=== PATIENT | male | born 1975 | race Caucasian/White ===

== ENCOUNTER 2020-04-12 22:46 | Inpatient (IN) | payer OTHER ==
[2020-04-12 23:53] LABS: #Eosinphils 0.1 10x3/uL (0.0-0.5); #Monocytes 0.7 10x3/uL (0.0-1.1); #Neutrophils 5.2 10x3/uL (1.5-8.4); %Basophils 0.5 % (0.0-2.0); %Eosinophils 0.9 % (0.0-6.0); %Lymphocytes 24.7 % (18.0-47.0); %Monocytes 8.1 % (0.0-10.0); %Neutrophils 65.4 % (40.0-75.0); Hemoglobin 18.3 g/dL (13.5-17.5); Mean Corpuscular HGB CONC 31.4 g/dL (32.0-36.0); Mean Corpuscular Hemoglobin 29.7 pg (27.0-33.0); Mean Corpuscular Volume 94.6 fl (81.2-95.1); Mean Platelet Volume 11.5 fl (7.4-10.4); Platelet Count 154 10x3/uL (150-450); RBC Distribution Width 15.3 % (11.5-14.5); Red Blood Cell (RBC) Count 6.16 10x6/uL (4.32-5.72)
[2020-04-12 23:57] LABS: ALT (SGPT) 19 U/L (8-55); AST (SGOT) 24 U/L (5-34); Albumin 3.9 g/dL (3.5-5.0); Alkaline Phosphatase 104 U/L (40-110); Anion Gap 17 mmol/L (10-20); BUN (Urea Nitrogen) 23 mg/dL (8.9-20.6); Calc. Creatinine Clearance 0 mL/min (70-130); Calcium 9.2 mg/dL (7.8-10.44); Carbon Dioxide 27 mmol/L (22-29); Chloride 100 mmol/L (98-107); Globulin 2.9 g/dL (2.4-3.5); Glucose 88 mg/dL (70-105); Lipase 40 U/L (8-78); Potassium 4.2 mmol/L (3.5-5.1); Protein, Total 6.8 g/dL (6.0-8.3); Sodium 140 mmol/L (136-145)
[2020-04-13 00:29] LABS: CKMB 3.5 ng/mL (0-6.6)
[2020-04-13] MEDS ORDERED: Diltiazem 125 MG/25 ML ONE (01:23)
[2020-04-13] MEDS ORDERED: Diltiazem 125 MG in Sodium Chloride 0.9% 100 ML IVPB SCH (02:00)
[2020-04-13] MEDS ORDERED: Furosemide 40 MG/4 ML VIAL SLOW IVP SCH (02:00)
[2020-04-13 02:45] LABS: SARS-CoV-2 NAA Rapid Test Not Detected (NotDetected)
[2020-04-13] MEDS: Apixaban 5 MG TAB PO SCH ×2 (04:00→13:56)
[2020-04-13 05:43] LABS: #Basophils 0.1 10x3/uL (0.0-0.2); #Eosinphils 0.1 10x3/uL (0.0-0.5); #Monocytes 0.8 10x3/uL (0.0-1.1); #Neutrophils 4.7 10x3/uL (1.5-8.4); %Basophils 0.6 % (0.0-2.0); %Eosinophils 1.2 % (0.0-6.0); %Lymphocytes 27.2 % (18.0-47.0); %Monocytes 9.7 % (0.0-10.0); %Neutrophils 60.9 % (40.0-75.0); Hemoglobin 17.5 g/dL (13.5-17.5); Mean Corpuscular HGB CONC 31.6 g/dL (32.0-36.0); Mean Corpuscular Volume 94.9 fl (81.2-95.1); Mean Platelet Volume 11.8 fl (7.4-10.4); Platelet Count 152 10x3/uL (150-450); RBC Distribution Width 14.5 % (11.5-14.5); Red Blood Cell (RBC) Count 5.83 10x6/uL (4.32-5.72); White Blood Cell (WBC) Count 7.7 10x3/uL (3.5-10.5)
[2020-04-13 05:51] LABS: Troponin I 0.238 ng/mL (< 0.028)
[2020-04-13 05:53] LABS: Anion Gap 18 mmol/L (10-20); BUN (Urea Nitrogen) 23 mg/dL (8.9-20.6); Calc. Creatinine Clearance 0 mL/min (70-130); Calcium 9.3 mg/dL (7.8-10.44); Carbon Dioxide 28 mmol/L (22-29); Chloride 98 mmol/L (98-107); Glucose 79 mg/dL (70-105); Magnesium 1.7 mg/dL (1.6-2.6); Sodium 140 mmol/L (136-145)
[2020-04-13] MEDS: Aspirin 81 mg Enteric Coated Tablet PO SCH (08:25)
[2020-04-13] MEDS: Allopurinol 100 MG TAB PO SCH (08:25)
[2020-04-13] MEDS: Digoxin 0.125 MG TAB PO SCH (08:25)
[2020-04-13] MEDS: Lisinopril 10 MG TAB PO SCH (08:27)
[2020-04-13] MEDS ORDERED: Magnesium Sulfate 2 GM in Sodium Chloride 0.9% 100 ML IVPB SCH (08:30)
[2020-04-13] MEDS ORDERED: Magnesium 2 GM/50 ML 2 GM in Premix Bag 1 BAG IVPB SCH (09:00)
[2020-04-13 13:49] VITALS: BMI 21.0
[2020-04-14] MEDS: Apixaban 5 MG TAB PO SCH ×2 (02:01→15:27)
[2020-04-14] MEDS: Digoxin 0.125 MG TAB PO SCH (05:20)
[2020-04-14] MEDS: Aspirin 81 mg Enteric Coated Tablet PO SCH (05:20)
[2020-04-14] MEDS: Allopurinol 100 MG TAB PO SCH (05:21)
[2020-04-14 05:44] LABS: #Basophils 0.1 10x3/uL (0.0-0.2); #Eosinphils 0.1 10x3/uL (0.0-0.5); #Monocytes 0.8 10x3/uL (0.0-1.1); #Neutrophils 4.6 10x3/uL (1.5-8.4); %Basophils 0.6 % (0.0-2.0); %Eosinophils 1.7 % (0.0-6.0); %Lymphocytes 27.9 % (18.0-47.0); %Monocytes 10.2 % (0.0-10.0); %Neutrophils 59.3 % (40.0-75.0); Hemoglobin 17.5 g/dL (13.5-17.5); Mean Corpuscular HGB CONC 31.3 g/dL (32.0-36.0); Mean Corpuscular Hemoglobin 29.7 pg (27.0-33.0); Mean Corpuscular Volume 94.9 fl (81.2-95.1); Mean Platelet Volume 11.2 fl (7.4-10.4); Platelet Count 147 10x3/uL (150-450); RBC Distribution Width 14.4 % (11.5-14.5); White Blood Cell (WBC) Count 7.8 10x3/uL (3.5-10.5)
[2020-04-14 06:00] LABS: Anion Gap 16 mmol/L (10-20); BUN (Urea Nitrogen) 25 mg/dL (8.9-20.6); Calc. Creatinine Clearance 60 mL/min (70-130); Calcium 8.7 mg/dL (7.8-10.44); Carbon Dioxide 27 mmol/L (22-29); Chloride 100 mmol/L (98-107); Glucose 76 mg/dL (70-105); Sodium 139 mmol/L (136-145)
[2020-04-14] MEDS: Furosemide 40 MG TAB PO SCH (08:25)
[2020-04-14] MEDS: Lisinopril 10 MG TAB PO SCH (08:26)
[2020-04-14] MEDS ORDERED: Midazolam HCl 5 mg/5 ml Vial ONE ×2 (09:51→09:52)
[2020-04-14] MEDS ORDERED: PROPOFOL 0 ML ONE (11:15)
[2020-04-14] MEDS ORDERED: Ivabradine 5 MG TAB PO SCH ×2 (12:15→21:00)
[2020-04-14] MEDS ORDERED: Digoxin 0.5 MG/2 ML AMP ONE ×2 (12:28→13:03)
[2020-04-14] MEDS ORDERED: Digoxin 0.5 MG/2 ML AMP SLOW IVP SCH (12:30)
[2020-04-14] MEDS ORDERED: Amiodarone 200 MG TAB PO SCH (12:30)
[2020-04-14] MEDS ORDERED: Diltiazem 125 MG in Sodium Chloride 0.9% 100 ML IVPB SCH (13:30)
[2020-04-14] MEDS: Amiodarone 200 MG TAB PO SCH (21:13)
[2020-04-14] MEDS ORDERED: Metoprolol Tartrate 5 MG/5 ML VIAL IVP SCH ×2 (22:15→23:15)
[2020-04-14] MEDS ORDERED: Digoxin 0.125 MG TAB PO SCH (23:15)
[2020-04-15] MEDS: Apixaban 5 MG TAB PO SCH ×2 (03:02→13:57)
[2020-04-15 06:34] LABS: #Eosinphils 0.2 10x3/uL (0.0-0.5); #Monocytes 0.9 10x3/uL (0.0-1.1); #Neutrophils 6.6 10x3/uL (1.5-8.4); %Basophils 0.4 % (0.0-2.0); %Lymphocytes 17.2 % (18.0-47.0); %Monocytes 9.4 % (0.0-10.0); %Neutrophils 70.6 % (40.0-75.0); Hemoglobin 18.3 g/dL (13.5-17.5); Mean Corpuscular HGB CONC 31.2 g/dL (32.0-36.0); Mean Corpuscular Volume 96.4 fl (81.2-95.1); Mean Platelet Volume 11.7 fl (7.4-10.4); Platelet Count 152 10x3/uL (150-450); RBC Distribution Width 15.1 % (11.5-14.5); Red Blood Cell (RBC) Count 6.09 10x6/uL (4.32-5.72); White Blood Cell (WBC) Count 9.4 10x3/uL (3.5-10.5)
[2020-04-15 06:40] LABS: Anion Gap 11 mmol/L (10-20); BUN (Urea Nitrogen) 23 mg/dL (8.9-20.6); Calc. Creatinine Clearance 63 mL/min (70-130); Calcium 8.3 mg/dL (7.8-10.44); Carbon Dioxide 30 mmol/L (22-29); Chloride 100 mmol/L (98-107); Glucose 118 mg/dL (70-105); Magnesium 1.9 mg/dL (1.6-2.6); Potassium 4.1 mmol/L (3.5-5.1); Sodium 137 mmol/L (136-145)
[2020-04-15] MEDS: Carvedilol 3.125 MG TAB PO SCH ×2 (09:37→17:18)
[2020-04-15] MEDS: Amiodarone 200 MG TAB PO SCH ×2 (09:37→20:17)
[2020-04-15] MEDS: Furosemide 40 MG TAB PO SCH (09:37)
[2020-04-15] MEDS: Digoxin 0.125 MG TAB PO SCH (09:38)
[2020-04-15] MEDS: Allopurinol 100 MG TAB PO SCH (09:41)
[2020-04-15 13:27] LABS: Actual Bicarbonate (HCO3a) 28.7 mEq/L (22-28); CO2 Tension 50.6 mmHg (35.0-45.0); Calcium, Ionized (arterial) 1.16 mmol/L (1.12-1.30); Carboxyhemoglobin (COHb) 0.7 gm% (0.0-3.0); Hemoglobin (Hb) 20.1 g/dL (14.0-18.0); O2 Tension (PaO2), arterial 41.4 mmHg (80.0-100.0); Potassium - ABG Lab 4.5 mmol/L (3.70-5.30); Puncture Site RRA; pH, Arterial 7.37 (7.35-7.45)
[2020-04-16] MEDS: Apixaban 5 MG TAB PO SCH ×2 (02:14→14:38)
[2020-04-16 05:50] LABS: #Basophils 0.1 10x3/uL (0.0-0.2); #Eosinphils 0.2 10x3/uL (0.0-0.5); #Monocytes 0.7 10x3/uL (0.0-1.1); #Neutrophils 4.6 10x3/uL (1.5-8.4); %Basophils 0.7 % (0.0-2.0); %Eosinophils 2.6 % (0.0-6.0); %Monocytes 9.5 % (0.0-10.0); %Neutrophils 62.8 % (40.0-75.0); Hemoglobin 18.5 g/dL (13.5-17.5); Mean Corpuscular HGB CONC 30.6 g/dL (32.0-36.0); Mean Corpuscular Hemoglobin 29.6 pg (27.0-33.0); Mean Corpuscular Volume 96.5 fl (81.2-95.1); Mean Platelet Volume 11.4 fl (7.4-10.4); Platelet Count 130 10x3/uL (150-450); RBC Distribution Width 14.9 % (11.5-14.5); Red Blood Cell (RBC) Count 6.26 10x6/uL (4.32-5.72); White Blood Cell (WBC) Count 7.3 10x3/uL (3.5-10.5)
[2020-04-16 06:06] LABS: ALT (SGPT) 13 U/L (8-55); AST (SGOT) 18 U/L (5-34); Albumin 2.9 g/dL (3.5-5.0); Alkaline Phosphatase 85 U/L (40-110); Anion Gap 16 mmol/L (10-20); BUN (Urea Nitrogen) 20 mg/dL (8.9-20.6); Bilirubin, Total 2.6 mg/dL (0.2-1.2); Calc. Creatinine Clearance 66 mL/min (70-130); Calcium 8.4 mg/dL (7.8-10.44); Carbon Dioxide 30 mmol/L (22-29); Chloride 101 mmol/L (98-107); Globulin 2.5 g/dL (2.4-3.5); Glucose 87 mg/dL (70-105); Magnesium 1.8 mg/dL (1.6-2.6); Potassium 4.6 mmol/L (3.5-5.1); Protein, Total 5.4 g/dL (6.0-8.3); Sodium 142 mmol/L (136-145)
[2020-04-16 08:13] VITALS: TEMP 98.6
[2020-04-16] MEDS: Carvedilol 3.125 MG TAB PO SCH (08:57)
[2020-04-16] MEDS: Allopurinol 100 MG TAB PO SCH (08:57)
[2020-04-16] MEDS: Amiodarone 200 MG TAB PO SCH (08:57)
[2020-04-16] MEDS: Furosemide 40 MG TAB PO SCH (08:57)
[2020-04-16 11:53] VITALS: BP 106/58
== END 2020-04-16 15:23 | disposition home or self-care (01) | DRG 308 ==
LOC: CSHERS 22:46 → CSHTELE 04-13 01:48 → UNDOADMOB 04-13 03:45 → OBSVTOIN 04-13 16:57
PROVIDERS: ADMIT Family Medicine; ATTEND Internal Medicine
PROC: B24BZZ4 Ultrasonography of Heart with Aorta, Transesophageal (ICD-10-PCS; principal; 2020-04-14)
PROC: 5A2204Z Restoration of Cardiac Rhythm, Single (ICD-10-PCS; 2020-04-14)
DX: I48.91 Unspecified atrial fibrillation (principal); Q25.5 Atresia of pulmonary artery; Q22.4 Congenital tricuspid stenosis; I50.21 Acute systolic (congestive) heart failure; N17.9 Acute kidney failure, unspecified; I13.0 Hypertensive heart and chronic kidney disease with heart failure and stage 1 through stage 4 chronic kidney disease, or unspecified chronic kidney disease; Z20.822 Contact with and (suspected) exposure to COVID-19; I48.92 Unspecified atrial flutter; R10.9 Unspecified abdominal pain; I42.0 Dilated cardiomyopathy; D75.1 Secondary polycythemia; N18.32 Chronic kidney disease, stage 3b; Z88.0 Allergy status to penicillin; Z79.82 Long term (current) use of aspirin; Z86.16 Personal history of COVID-19; Z79.51 Long term (current) use of inhaled steroids; Z79.899 Other long term (current) drug therapy
CPT/HCPCS: 36415; 36600; 71045; 80048; 80053; 82553; 82805; 83690; 83735; 83880; 84443; 84484; 85025; 92960; 93005; 93010; 93306; 93312; 93975; 94760; 96365; 96366; 96367; 96375; 96376; G0378; J1160; J1940; J2250; J2704; J3475; J3490; U0002

== ENCOUNTER 2021-01-01 09:28 | Inpatient (IN) | payer OTHER ==
[2021-01-01] MEDS ORDERED: Ondansetron PF 4 MG/2 ML Vial ONE (10:31)
[2021-01-01 10:39] LABS: Hemoglobin 22.1 g/dL (13.5-17.5); Mean Corpuscular HGB CONC 32.5 g/dL (32.0-36.0); Mean Corpuscular Hemoglobin 30.1 pg (27.0-33.0); Mean Corpuscular Volume 92.5 fl (81.2-95.1); Mean Platelet Volume 10.5 fl (7.4-10.4); Platelet Count 191 10x3/uL (150-450); RBC Distribution Width 17.6 % (11.5-14.5); Red Blood Cell (RBC) Count 7.34 10x6/uL (4.32-5.72); White Blood Cell (WBC) Count 10.4 10x3/uL (3.5-10.5)
[2021-01-01 10:44] LABS: MDiff Complete? YES
[2021-01-01 11:31] LABS: Band 1 % (5-11); Lymphocytes 12 % (21-51); Monocytes 7 % (0-10); Neutrophil 80 % (42-75)
[2021-01-01 11:32] LABS: Platelet Morphology Comment Appears Adequate
[2021-01-01 11:33] LABS: RBC Morphology Normal
[2021-01-01 11:37] LABS: #Basophils 0.1 10x3/uL (0.0-0.2); #Monocytes 1.1 10x3/uL (0.0-1.1); #Neutrophils 7.6 10x3/uL (1.5-8.4); %Basophils 0.7 % (0.0-2.0); %Eosinophils 0.4 % (0.0-6.0); %Lymphocytes 13.9 % (18.0-47.0); %Monocytes 10.8 % (0.0-10.0); %Neutrophils 73.5 % (40.0-75.0); Hemoglobin 21.6 g/dL (13.5-17.5); Mean Corpuscular HGB CONC 32.3 g/dL (32.0-36.0); Mean Corpuscular Hemoglobin 30.1 pg (27.0-33.0); Mean Corpuscular Volume 93.2 fl (81.2-95.1); Mean Platelet Volume 10.6 fl (7.4-10.4); Platelet Count 182 10x3/uL (150-450); RBC Distribution Width 17.3 % (11.5-14.5); Red Blood Cell (RBC) Count 7.17 10x6/uL (4.32-5.72); White Blood Cell (WBC) Count 10.3 10x3/uL (3.5-10.5)
[2021-01-01 11:55] LABS: ALT (SGPT) 395 U/L (8-55); AST (SGOT) 350 U/L (5-34); Albumin 3.6 g/dL (3.5-5.0); Alkaline Phosphatase 132 U/L (40-110); Anion Gap 13 mmol/L (10-20); BUN (Urea Nitrogen) 36 mg/dL (8.9-20.6); Calc. Creatinine Clearance 0 mL/min (70-130); Calcium 8.7 mg/dL (7.8-10.44); Carbon Dioxide 27 mmol/L (22-29); Chloride 99 mmol/L (98-107); Globulin 3.9 g/dL (2.4-3.5); Glucose 80 mg/dL (70-105); Lipase 136 U/L (8-78); Protein, Total 7.5 g/dL (6.0-8.3); Sodium 132 mmol/L (136-145)
[2021-01-01 12:06] LABS: Potassium 6.7 mmol/L (3.5-5.1)
[2021-01-01 12:50] LABS: Bilirubin 1+ (Negative); Blood, Urine Negative (Negative); Clarity Clear (Clear); Glucose, Urine (Dipstick) Normal (Negative); Ketone, Urine 15 mg/dL (Negative); Leukocyte Negative (Negative); Nitrite Negative (Negative); Protein, Urine (Dipstick) 30 mg/dl (Neg-Trace); Specific Gravity, Urine 1.025 (1.002-1.036)
[2021-01-01 12:58] LABS: RBC/HPF 0-3 HPF (0-3); WBC/HPF 0-3 HPF (0-3)
[2021-01-01 12:59] LABS: Bacteria/HPF None Seen HPF (None Seen); Squamous Epithelial 0-3 HPF (0-3)
[2021-01-01 13:19] LABS: Anion Gap 15 mmol/L (10-20); BUN (Urea Nitrogen) 34 mg/dL (8.9-20.6); Calc. Creatinine Clearance 0 mL/min (70-130); Calcium 8.2 mg/dL (7.8-10.44); Carbon Dioxide 24 mmol/L (22-29); Chloride 101 mmol/L (98-107); Glucose 68 mg/dL (70-105); Potassium 6.2 mmol/L (3.5-5.1); Sodium 134 mmol/L (136-145)
[2021-01-01] MEDS ORDERED: Calcium Gluc 4.6 MEQ/10 ML (100 MG/ML) ONE (13:41)
[2021-01-01] MEDS ORDERED: Dextrose 50% Abboject 50 ML SYRINGE ONE (13:43)
[2021-01-01] MEDS ORDERED: Insulin Regular 300 UNITS/3 ML VIAL ONE (13:44)
[2021-01-01 15:39] LABS: INR-International Normal Ratio 1.5; Prothrombin Time 16.4 sec (9.5-12.1)
[2021-01-01 16:26] LABS: Digoxin 4.02 ng/mL (0.8-2.0)
[2021-01-01 16:42] LABS: CKMB 2.7 ng/mL (0-6.6)
[2021-01-01 17:06] LABS: SARS-CoV-2 NAA Rapid Test Not Detected (NotDetected)
[2021-01-01 17:35] LABS: ALT (SGPT) 455 U/L (8-55); AST (SGOT) 415 U/L (5-34); Acetaminophen Less than 6.0 mcg/mL (10.0-30.0); Albumin 3.3 g/dL (3.5-5.0); Alkaline Phosphatase 126 U/L (40-110); Anion Gap 13 mmol/L (10-20); BUN (Urea Nitrogen) 30 mg/dL (8.9-20.6); Bilirubin, Total 1.9 mg/dL (0.2-1.2); Calc. Creatinine Clearance 0 mL/min (70-130); Calcium 8.5 mg/dL (7.8-10.44); Carbon Dioxide 24 mmol/L (22-29); Chloride 103 mmol/L (98-107); Globulin 3.3 g/dL (2.4-3.5); Glucose 71 mg/dL (70-105); Iron 166 ug/dL (65-175); Iron Binding Capacity, Total 268 mcg/dL (261-462); Potassium 5.1 mmol/L (3.5-5.1); Protein, Total 6.6 g/dL (6.0-8.3); Sodium 135 mmol/L (136-145)
[2021-01-01 17:40] LABS: Troponin I 0.058 ng/mL (< 0.028)
[2021-01-01] MEDS: Carvedilol 3.125 MG TAB PO SCH (21:15)
[2021-01-01] MEDS: Aspirin 81 mg Enteric Coated Tablet PO SCH (21:15)
[2021-01-01] MEDS: Apixaban 5 MG TAB PO SCH (21:15)
[2021-01-01 23:44] LABS: HBCM Index 0.06 S/CO (0-0.79); HBSAB Concentration Less than 8.00 mIU/mL; HBSAg Index 0.23 S/CO (0-0.99); Hep A IgM AB Non-Reactive (NonReactive); Hep A IgM S/CO 0.11 S/CO (0-0.79); Hep B Surf AB Non-Reactive (NonReactive); Hep B Surf Ag Non-Reactive S/CO (NonReactive); Hep C IgG Ab Non-Reactive (NonReactive); Hep C Index 0.06 S/CO (0-0.79); Hepatitis B Core IgM Abs Non-Reactive (NonReactive)
[2021-01-02 04:27] LABS: ALT (SGPT) 554 U/L (8-55); AST (SGOT) 516 U/L (5-34); Albumin 3.1 g/dL (3.5-5.0); Alkaline Phosphatase 119 U/L (40-110); Anion Gap 15 mmol/L (10-20); BUN (Urea Nitrogen) 25 mg/dL (8.9-20.6); Bilirubin, Total 2.1 mg/dL (0.2-1.2); CK (CPK) 34 U/L (30-200); Calc. Creatinine Clearance 49 mL/min (70-130); Calcium 8.5 mg/dL (7.8-10.44); Carbon Dioxide 23 mmol/L (22-29); Chloride 101 mmol/L (98-107); Potassium 5.6 mmol/L (3.5-5.1); Protein, Total 6.1 g/dL (6.0-8.3); Sodium 133 mmol/L (136-145)
[2021-01-02 04:28] LABS: Glucose 56 mg/dL (70-105)
[2021-01-02 05:11] LABS: #Basophils 0.1 10x3/uL (0.0-0.2); #Eosinphils 0.1 10x3/uL (0.0-0.5); #Monocytes 1.2 10x3/uL (0.0-1.1); #Neutrophils 7.2 10x3/uL (1.5-8.4); %Basophils 0.5 % (0.0-2.0); %Eosinophils 0.7 % (0.0-6.0); %Lymphocytes 16.4 % (18.0-47.0); %Monocytes 11.4 % (0.0-10.0); %Neutrophils 70.4 % (40.0-75.0); Hemoglobin 19.9 g/dL (13.5-17.5); Mean Corpuscular HGB CONC 31.5 g/dL (32.0-36.0); Mean Corpuscular Hemoglobin 29.4 pg (27.0-33.0); Mean Corpuscular Volume 93.5 fl (81.2-95.1); Mean Platelet Volume 10.8 fl (7.4-10.4); Platelet Count 162 10x3/uL (150-450); RBC Distribution Width 15.5 % (11.5-14.5); Red Blood Cell (RBC) Count 6.76 10x6/uL (4.32-5.72); White Blood Cell (WBC) Count 10.3 10x3/uL (3.5-10.5)
[2021-01-02] MEDS ORDERED: Dextrose 50% Abboject 50 ML SYRINGE SLOW IVP SCH ×2 (06:30)
[2021-01-02] MEDS: Apixaban 5 MG TAB PO SCH ×2 (06:31→20:34)
[2021-01-02] MEDS: Carvedilol 3.125 MG TAB PO SCH ×2 (08:57→20:34)
[2021-01-02] MEDS ORDERED: Ondansetron PF 4 MG/2 ML Vial IVP PRN (12:11)
[2021-01-02] MEDS: traMADol HCl 50 MG TAB PO PRN ×2 (14:23→20:41)
[2021-01-02] MEDS: Sodium Chloride 0.9% 1,000 ML IV SCH (14:24)
[2021-01-02] MEDS: Aspirin 81 mg Enteric Coated Tablet PO SCH (20:34)
[2021-01-03] MEDS: Carvedilol 3.125 MG TAB PO SCH ×2 (09:06→21:22)
[2021-01-03] MEDS: Apixaban 5 MG TAB PO SCH ×2 (09:06→20:39)
[2021-01-03 10:04] LABS: #Basophils 0.1 10x3/uL (0.0-0.2); #Eosinphils 0.1 10x3/uL (0.0-0.5); #Monocytes 1.1 10x3/uL (0.0-1.1); #Neutrophils 5.6 10x3/uL (1.5-8.4); %Eosinophils 1.5 % (0.0-6.0); %Lymphocytes 20.4 % (18.0-47.0); %Monocytes 12.3 % (0.0-10.0); %Neutrophils 64.2 % (40.0-75.0); Hemoglobin 20.7 g/dL (13.5-17.5); Mean Corpuscular HGB CONC 32.2 g/dL (32.0-36.0); Mean Corpuscular Volume 93.1 fl (81.2-95.1); Mean Platelet Volume 11.1 fl (7.4-10.4); Platelet Count 160 10x3/uL (150-450); RBC Distribution Width 17.2 % (11.5-14.5); Red Blood Cell (RBC) Count 6.91 10x6/uL (4.32-5.72); White Blood Cell (WBC) Count 8.8 10x3/uL (3.5-10.5)
[2021-01-03 10:08] LABS: Anion Gap 12 mmol/L (10-20); BUN (Urea Nitrogen) 16 mg/dL (8.9-20.6); Calc. Creatinine Clearance 60 mL/min (70-130); Calcium 8.7 mg/dL (7.8-10.44); Carbon Dioxide 26 mmol/L (22-29); Chloride 100 mmol/L (98-107); Glucose 81 mg/dL (70-105); Potassium 4.7 mmol/L (3.5-5.1); Sodium 133 mmol/L (136-145)
[2021-01-03 10:12] LABS: ALT (SGPT) 480 U/L (8-55); AST (SGOT) 319 U/L (5-34); Albumin 3.2 g/dL (3.5-5.0); Alkaline Phosphatase 120 U/L (40-110); Bilirubin, Direct 1.1 mg/dL (0.1-0.3); Bilirubin, Total 2.2 mg/dL (0.2-1.2); Protein, Total 6.4 g/dL (6.0-8.3)
[2021-01-03] MEDS: Sodium Chloride 0.9% 1,000 ML IV SCH (11:32)
[2021-01-03] MEDS: traMADol HCl 50 MG TAB PO PRN ×2 (11:56→20:40)
[2021-01-03] MEDS: Aspirin 81 mg Enteric Coated Tablet PO SCH (20:39)
[2021-01-04 04:48] LABS: Anion Gap 11 mmol/L (10-20); BUN (Urea Nitrogen) 11 mg/dL (8.9-20.6); Calc. Creatinine Clearance 77 mL/min (70-130); Calcium 8.3 mg/dL (7.8-10.44); Carbon Dioxide 26 mmol/L (22-29); Chloride 101 mmol/L (98-107); Glucose 82 mg/dL (70-105); Potassium 4.2 mmol/L (3.5-5.1); Sodium 134 mmol/L (136-145)
[2021-01-04 04:57] VITALS: BMI 18.8
[2021-01-04 05:24] LABS: ALT (SGPT) 353 U/L (8-55); AST (SGOT) 209 U/L (5-34); Albumin 2.9 g/dL (3.5-5.0); Alkaline Phosphatase 105 U/L (40-110); Bilirubin, Direct 1.2 mg/dL (0.1-0.3); Bilirubin, Total 2.4 mg/dL (0.2-1.2); Protein, Total 5.6 g/dL (6.0-8.3)
[2021-01-04 05:29] LABS: #Basophils 0.1 10x3/uL (0.0-0.2); #Eosinphils 0.2 10x3/uL (0.0-0.5); #Monocytes 0.9 10x3/uL (0.0-1.1); #Neutrophils 4.2 10x3/uL (1.5-8.4); %Basophils 0.7 % (0.0-2.0); %Eosinophils 2.5 % (0.0-6.0); %Lymphocytes 25.7 % (18.0-47.0); %Monocytes 12.7 % (0.0-10.0); %Neutrophils 57.7 % (40.0-75.0); Hemoglobin 19.3 g/dL (13.5-17.5); Mean Corpuscular HGB CONC 32.4 g/dL (32.0-36.0); Mean Corpuscular Volume 92.4 fl (81.2-95.1); Platelet Count 156 10x3/uL (150-450); RBC Distribution Width 16.5 % (11.5-14.5); Red Blood Cell (RBC) Count 6.44 10x6/uL (4.32-5.72); White Blood Cell (WBC) Count 7.2 10x3/uL (3.5-10.5)
[2021-01-04] MEDS: Sodium Chloride 0.9% 1,000 ML IV SCH (06:06)
[2021-01-04] MEDS ORDERED: Furosemide 40 MG/4 ML VIAL SLOW IVP SCH (08:00)
[2021-01-04] MEDS: Carvedilol 3.125 MG TAB PO SCH ×2 (08:14→20:37)
[2021-01-04] MEDS: Apixaban 5 MG TAB PO SCH ×2 (08:14→20:36)
[2021-01-04] MEDS: Aspirin 81 mg Enteric Coated Tablet PO SCH (20:37)
[2021-01-05 05:11] LABS: Anion Gap 12 mmol/L (10-20); BUN (Urea Nitrogen) 14 mg/dL (8.9-20.6); Calc. Creatinine Clearance 66 mL/min (70-130); Calcium 8.3 mg/dL (7.8-10.44); Carbon Dioxide 30 mmol/L (22-29); Chloride 98 mmol/L (98-107); Glucose 84 mg/dL (70-105); Potassium 4.4 mmol/L (3.5-5.1); Sodium 136 mmol/L (136-145)
[2021-01-05 05:22] LABS: #Basophils 0.1 10x3/uL (0.0-0.2); #Eosinphils 0.2 10x3/uL (0.0-0.5); #Neutrophils 4.5 10x3/uL (1.5-8.4); %Basophils 0.8 % (0.0-2.0); %Eosinophils 2.2 % (0.0-6.0); %Lymphocytes 25.2 % (18.0-47.0); %Monocytes 12.4 % (0.0-10.0); %Neutrophils 58.9 % (40.0-75.0); Hemoglobin 20.1 g/dL (13.5-17.5); Mean Corpuscular Hemoglobin 30.2 pg (27.0-33.0); Mean Corpuscular Volume 91.6 fl (81.2-95.1); Mean Platelet Volume 10.7 fl (7.4-10.4); Platelet Count 142 10x3/uL (150-450); RBC Distribution Width 16.3 % (11.5-14.5); Red Blood Cell (RBC) Count 6.66 10x6/uL (4.32-5.72); White Blood Cell (WBC) Count 7.7 10x3/uL (3.5-10.5)
[2021-01-05 07:26] VITALS: BP 109/57; TEMP 97.5
[2021-01-05] MEDS: Apixaban 5 MG TAB PO SCH (08:06)
[2021-01-05] MEDS: Carvedilol 3.125 MG TAB PO SCH (08:07)
== END 2021-01-05 11:20 | disposition home or self-care (01) | DRG 441 ==
LOC: CSHERS 09:28 → CSHIMCU 18:21 → CSHTELE 01-02 13:35
PROVIDERS: ADMIT Internal Medicine; ATTEND Internal Medicine
DX: K71.8 Toxic liver disease with other disorders of liver (principal); Q22.4 Congenital tricuspid stenosis; Q25.5 Atresia of pulmonary artery; N17.9 Acute kidney failure, unspecified; I42.0 Dilated cardiomyopathy; I50.22 Chronic systolic (congestive) heart failure; Z20.822 Contact with and (suspected) exposure to COVID-19; D75.1 Secondary polycythemia; E78.5 Hyperlipidemia, unspecified; N18.32 Chronic kidney disease, stage 3b; K80.20 Calculus of gallbladder without cholecystitis without obstruction; I48.0 Paroxysmal atrial fibrillation; R79.89 Other specified abnormal findings of blood chemistry; E87.5 Hyperkalemia; T46.0X5A Adverse effect of cardiac-stimulant glycosides and drugs of similar action, initial encounter; R00.1 Bradycardia, unspecified; Z88.0 Allergy status to penicillin; Z79.82 Long term (current) use of aspirin; Z79.899 Other long term (current) drug therapy; Z79.01 Long term (current) use of anticoagulants; Z90.49 Acquired absence of other specified parts of digestive tract; Z86.16 Personal history of COVID-19
CPT/HCPCS: 36415; 36416; 74170; 74176; 76705; 80048; 80053; 80074; 80076; 80143; 80162; 81003; 81015; 82103; 82390; 82550; 82553; 82728; 83516; 83540; 83550; 83690; 83880; 84484; 85025; 85610; 86038; 86225; 86706; 86708; 93005; 93306; 94760; 94762; 96365; 96375; 80307; J0610; J1815; J1940; J2405; J7050; U0002

== ENCOUNTER 2021-05-17 16:44 | Emergency (ER) | payer OTHER ==
[2021-05-17 17:14] LABS: Bilirubin Neg (Negative); Blood, Urine Negative (Negative); Clarity Clear (Clear); Glucose, Urine (Dipstick) Normal (Negative); Ketone, Urine Negative (Negative); Leukocyte Negative (Negative); Nitrite Negative (Negative); Protein, Urine (Dipstick) Negative (Neg-Trace); Urobilinogen Normal mg/dL (Less than 2)
[2021-05-17] MEDS ORDERED: cefTRIAXone\\ROCEPHIN 1 GM VIAL ONE (19:11)
[2021-05-17] MEDS ORDERED: Lidocaine 1% PF 5 ML VIAL ONE (19:12)
[2021-05-18 10:38] LABS: Chlam.trachomatis by PCR,Urine Not Detected (NotDetected)
== END 2021-05-17 20:14 | disposition home or self-care (01) ==
LOC: CSHERS 16:44
DX: N45.3 Epididymo-orchitis (principal); I11.0 Hypertensive heart disease with heart failure; I50.22 Chronic systolic (congestive) heart failure; M10.9 Gout, unspecified; Z79.01 Long term (current) use of anticoagulants; Z79.82 Long term (current) use of aspirin; Z79.51 Long term (current) use of inhaled steroids; Z79.899 Other long term (current) drug therapy
CPT/HCPCS: 76870; 81003; 87491; 87591; 93976; 96372; J0696

== ENCOUNTER 2021-06-09 11:16 | Emergency (ER) | payer OTHER ==
[2021-06-09 12:41] LABS: Bilirubin Neg (Negative); Blood, Urine Negative (Negative); Glucose, Urine (Dipstick) Normal (Negative); Ketone, Urine 5 mg/dL (Negative); Leukocyte Negative (Negative); Nitrite Negative (Negative); Protein, Urine (Dipstick) 30 mg/dl (Neg-Trace); Specific Gravity, Urine 1.015 (1.002-1.036); pH, Urine 6.5 (5.0-9.0)
[2021-06-09 12:59] LABS: Clarity Clear (Clear)
[2021-06-09 13:00] LABS: Bacteria/HPF None Seen HPF (None Seen); RBC/HPF None Seen HPF (0-3); Squamous Epithelial None Seen HPF (0-3); WBC/HPF None Seen HPF (0-3)
[2021-06-09 23:58] LABS: Chlam.trachomatis by PCR,Urine Not Detected (NotDetected)
== END 2021-06-09 13:57 | disposition home or self-care (01) ==
LOC: CSHERS 11:16
DX: N45.3 Epididymo-orchitis (principal); I11.0 Hypertensive heart disease with heart failure; I50.22 Chronic systolic (congestive) heart failure
CPT/HCPCS: 76870; 81003; 81015; 87086; 87491; 87591; 93976

== ENCOUNTER 2022-06-10 09:00 | Emergency (ER) | payer OTHER ==
[2022-06-10] MEDS ORDERED: Ondansetron PF 4 MG/2 ML Vial ONE (09:52)
[2022-06-10] MEDS ORDERED: Morphine 10 MG/ML VIAL ONE (09:53)
[2022-06-10 10:04] LABS: #Basophils 0.1 10x3/uL (0.0-0.2); #Eosinphils 0.3 10x3/uL (0.0-0.5); #Neutrophils 4.7 10x3/uL (1.5-8.4); %Basophils 1.5 % (0.0-2.0); %Eosinophils 3.4 % (0.0-6.0); %Lymphocytes 26.1 % (18.0-47.0); %Monocytes 11.8 % (0.0-10.0); %Neutrophils 56.8 % (40.0-75.0); Hemoglobin 17.8 g/dL (13.5-17.5); Mean Corpuscular HGB CONC 30.5 g/dL (32.0-36.0); Mean Corpuscular Hemoglobin 24.7 pg (27.0-33.0); Mean Platelet Volume 10.4 fl (7.4-10.4); Platelet Count 225 10x3/uL (150-450); White Blood Cell (WBC) Count 8.3 10x3/uL (3.5-10.5)
[2022-06-10] MEDS ORDERED: Iopamidol 300 61% 100 ML VIAL FS ONE (10:11)
[2022-06-10 10:14] LABS: ALT (SGPT) 21 U/L (8-55); AST (SGOT) 26 U/L (5-34); Albumin 3.7 g/dL (3.5-5.0); Alkaline Phosphatase 97 U/L (40-110); Anion Gap 12 mmol/L (10-20); BUN (Urea Nitrogen) 20 mg/dL (8.9-20.6); Bilirubin, Total 0.9 mg/dL (0.2-1.2); Calc. Creatinine Clearance 0 mL/min (70-130); Calcium 8.7 mg/dL (7.8-10.44); Carbon Dioxide 23 mmol/L (22-29); Chloride 107 mmol/L (98-107); Estimated GFR 60; Globulin 3.2 g/dL (2.4-3.5); Glucose 96 mg/dL (70-105); Lipase 61 U/L (8-78); Potassium 4.2 mmol/L (3.5-5.1); Protein, Total 6.9 g/dL (6.0-8.3); Sodium 138 mmol/L (136-145)
[2022-06-10] MEDS ORDERED: Mag-Al Plus 1200 MG/1200 MG/120 MG/30 ML UDCUP ONE (14:10)
[2022-06-10] MEDS ORDERED: Famotidine/PF 20 mg/2ml Vial ONE (14:10)
== END 2022-06-10 14:27 | disposition home or self-care (01) ==
LOC: CSHERS 09:00
DX: R10.30 Lower abdominal pain, unspecified (principal); R09.02 Hypoxemia; R11.0 Nausea; I10 Essential (primary) hypertension; M10.9 Gout, unspecified
CPT/HCPCS: 71045; 74177; 80053; 83690; 85025; 96374; 96375; J2270; J2405; S0028

== ENCOUNTER 2023-01-19 19:54 | Inpatient (IN) | payer OTHER ==
[2023-01-19] MEDS ORDERED: Ipratropium/Albuterol 3 ML NEB ONE (20:14)
[2023-01-19] MEDS ORDERED: Ketorolac Tromethamine 30 MG/ML VIAL ONE (20:52)
[2023-01-19 20:54] LABS: SARS-CoV-2 NAA Rapid Test Not Detected (NotDetected)
[2023-01-19 21:24] LABS: #Basophils 0.1 10x3/uL (0.0-0.2); #Eosinphils 0.2 10x3/uL (0.0-0.5); #Monocytes 1.2 10x3/uL (0.0-1.1); #Neutrophils 7.3 10x3/uL (1.5-8.4); %Basophils 0.6 % (0.0-2.0); %Eosinophils 1.4 % (0.0-6.0); %Lymphocytes 21.1 % (18.0-47.0); %Monocytes 10.5 % (0.0-10.0); Hematocrit 57.8 % (38.8-50.0); Hemoglobin 17.4 g/dL (13.5-17.5); Mean Corpuscular HGB CONC 30.1 g/dL (32.0-36.0); Mean Corpuscular Hemoglobin 22.7 pg (27.0-33.0); Mean Corpuscular Volume 75.5 fl (81.2-95.1); Mean Platelet Volume 9.4 fl (7.4-10.4); Platelet Count 252 10x3/uL (150-450); RBC Distribution Width 20.4 % (11.5-14.5); Red Blood Cell (RBC) Count 7.66 10x6/uL (4.32-5.72)
[2023-01-19 21:32] LABS: ALT (SGPT) 16 U/L (8-55); AST (SGOT) 21 U/L (5-34); Albumin 3.3 g/dL (3.5-5.0); Alkaline Phosphatase 115 U/L (40-110); Anion Gap 15 mmol/L (10-20); BUN (Urea Nitrogen) 21 mg/dL (8.9-20.6); Bilirubin, Total 1.8 mg/dL (0.2-1.2); Calc. Creatinine Clearance 0 mL/min (70-130); Calcium 8.5 mg/dL (7.8-10.44); Carbon Dioxide 23 mmol/L (22-29); Chloride 101 mmol/L (98-107); Estimated GFR 52; Globulin 3.6 g/dL (2.4-3.5); Glucose 155 mg/dL (70-105); Potassium 4.2 mmol/L (3.5-5.1); Protein, Total 6.9 g/dL (6.0-8.3); Sodium 135 mmol/L (136-145)
[2023-01-19] MEDS ORDERED: Aspirin 325 MG TAB ONE (21:47)
[2023-01-20] MEDS ORDERED: Nitroglycerin 0.4 MG TAB (25 Tab Bottle) SL PRN (00:04)
[2023-01-20] MEDS ORDERED: Doxycycline 100 MG CAP PO SCH (00:15)
[2023-01-20] MEDS ORDERED: Sacubitril 24MG/Valsartan 26 MG TAB PO SCH (00:15)
[2023-01-20] MEDS ORDERED: Amiodarone 200 MG TAB PO SCH (00:15)
[2023-01-20] MEDS ORDERED: Allopurinol 100 MG TAB PO SCH (00:15)
[2023-01-20] MEDS ORDERED: Carvedilol 3.125 MG TAB PO SCH (00:15)
[2023-01-20] MEDS ORDERED: Apixaban 5 MG TAB PO SCH (00:15)
[2023-01-20 00:32] VITALS: BMI 16.2
[2023-01-20] MEDS: cefTRIAXone\\ROCEPHIN 1 GM in Sodium Chloride 0.9% 100 ML IVPB SCH (00:49)
[2023-01-20 01:13] LABS: Magnesium 1.5 mg/dL (1.6-2.6)
[2023-01-20 01:32] LABS: Troponin I 0.067 ng/mL (< 0.028)
[2023-01-20 04:01] LABS: #Eosinphils 0.2 10x3/uL (0.0-0.5); #Monocytes 1.4 10x3/uL (0.0-1.1); #Neutrophils 5.3 10x3/uL (1.5-8.4); %Basophils 0.4 % (0.0-2.0); %Eosinophils 2.2 % (0.0-6.0); %Monocytes 15.1 % (0.0-10.0); Hematocrit 50.1 % (38.8-50.0); Mean Corpuscular HGB CONC 29.9 g/dL (32.0-36.0); Mean Corpuscular Hemoglobin 22.5 pg (27.0-33.0); Mean Platelet Volume 9.8 fl (7.4-10.4); Platelet Count 220 10x3/uL (150-450); RBC Distribution Width 19.9 % (11.5-14.5); Red Blood Cell (RBC) Count 6.68 10x6/uL (4.32-5.72); White Blood Cell (WBC) Count 9.1 10x3/uL (3.5-10.5)
[2023-01-20 04:04] LABS: Anion Gap 12 mmol/L (10-20); BUN (Urea Nitrogen) 21 mg/dL (8.9-20.6); Calc. Creatinine Clearance 46 mL/min (70-130); Calcium 7.6 mg/dL (7.8-10.44); Carbon Dioxide 22 mmol/L (22-29); Cardiac Risk 2.3 (Less than 4.5); Chloride 105 mmol/L (98-107); Cholesterol 97 mg/dl (< 200 Desired); Estimated GFR 56; Glucose 100 mg/dL (70-105); HDL Cholesterol 42 mg/dL (>60 Neg Risk); LDL Cholesterol, Calculated 48 mg/dL; Potassium 3.6 mmol/L (3.5-5.1); Sodium 135 mmol/L (136-145); Triglycerides 36 mg/dL (Less than 150)
[2023-01-20 04:22] LABS: Troponin I 0.079 ng/mL (< 0.028)
[2023-01-20 09:00] LABS: Troponin I 0.054 ng/mL (< 0.028)
[2023-01-20] MEDS: Amiodarone 200 MG TAB PO SCH ×2 (09:59→21:17)
[2023-01-20] MEDS: Allopurinol 100 MG TAB PO SCH ×2 (09:59→21:17)
[2023-01-20] MEDS: guaiFENesin ER 600 MG TAB PO SCH ×2 (09:59→21:18)
[2023-01-20] MEDS: Aspirin 81 mg Enteric Coated Tablet PO SCH (09:59)
[2023-01-20] MEDS: Carvedilol 3.125 MG TAB PO SCH ×2 (09:59→17:46)
[2023-01-20] MEDS: Digoxin 0.125 MG TAB PO SCH (09:59)
[2023-01-20] MEDS: Bumetanide 1 MG TAB PO SCH (10:00)
[2023-01-20] MEDS: Sacubitril 24MG/Valsartan 26 MG TAB PO SCH ×2 (10:00→21:17)
[2023-01-20] MEDS: Doxycycline 100 MG CAP PO SCH ×2 (10:00→21:18)
[2023-01-20] MEDS: Apixaban 5 MG TAB PO SCH ×2 (10:00→21:18)
[2023-01-20] MEDS: Fluticasone Propionate Nasal Spray 16 gm Bottle NASAL SCH ×2 (10:03→21:19)
[2023-01-20] MEDS: Loratadine 10 MG TAB PO SCH (10:03)
[2023-01-20] MEDS: Benzocaine/Menthol 1 LOZ LOZ PO PRN ×2 (11:02→20:03)
[2023-01-20] MEDS ORDERED: Ipratropium/Albuterol 3 ML NEB NEB PRN (11:24)
[2023-01-20] MEDS: Acetaminophen 325 MG TAB PO PRN ×2 (14:25→21:38)
[2023-01-21] MEDS: cefTRIAXone\\ROCEPHIN 1 GM in Sodium Chloride 0.9% 100 ML IVPB SCH (01:23)
[2023-01-21] MEDS ORDERED: Guaifenesin DM 100-10/5 ML UDCUP PO SCH (01:45)
[2023-01-21 05:53] LABS: #Basophils 0.1 10x3/uL (0.0-0.2); #Eosinphils 0.4 10x3/uL (0.0-0.5); #Monocytes 1.4 10x3/uL (0.0-1.1); #Neutrophils 7.3 10x3/uL (1.5-8.4); %Basophils 0.7 % (0.0-2.0); %Eosinophils 3.6 % (0.0-6.0); %Lymphocytes 21.5 % (18.0-47.0); %Monocytes 11.5 % (0.0-10.0); %Neutrophils 62.3 % (40.0-75.0); Hematocrit 53.5 % (38.8-50.0); Hemoglobin 15.8 g/dL (13.5-17.5); Mean Corpuscular HGB CONC 29.5 g/dL (32.0-36.0); Mean Corpuscular Hemoglobin 22.5 pg (27.0-33.0); Mean Corpuscular Volume 76.1 fl (81.2-95.1); Mean Platelet Volume 10.5 fl (7.4-10.4); Platelet Count 241 10x3/uL (150-450); RBC Distribution Width 20.2 % (11.5-14.5); Red Blood Cell (RBC) Count 7.03 10x6/uL (4.32-5.72); White Blood Cell (WBC) Count 11.7 10x3/uL (3.5-10.5)
[2023-01-21 06:02] LABS: Anion Gap 14 mmol/L (10-20); BUN (Urea Nitrogen) 22 mg/dL (8.9-20.6); Calc. Creatinine Clearance 52 mL/min (70-130); Carbon Dioxide 21 mmol/L (22-29); Chloride 107 mmol/L (98-107); Estimated GFR 64; Glucose 79 mg/dL (70-105); Sodium 138 mmol/L (136-145)
[2023-01-21] MEDS: Carvedilol 3.125 MG TAB PO SCH ×2 (08:12→16:43)
[2023-01-21] MEDS: Digoxin 0.125 MG TAB PO SCH (08:12)
[2023-01-21] MEDS: Aspirin 81 mg Enteric Coated Tablet PO SCH (08:12)
[2023-01-21] MEDS: Sacubitril 24MG/Valsartan 26 MG TAB PO SCH ×2 (08:13→20:21)
[2023-01-21] MEDS: Amiodarone 200 MG TAB PO SCH ×2 (08:13→20:21)
[2023-01-21] MEDS: Loratadine 10 MG TAB PO SCH (08:13)
[2023-01-21] MEDS: guaiFENesin ER 600 MG TAB PO SCH ×2 (08:13→20:21)
[2023-01-21] MEDS: Bumetanide 1 MG TAB PO SCH (08:13)
[2023-01-21] MEDS: Apixaban 5 MG TAB PO SCH ×2 (08:13→20:20)
[2023-01-21] MEDS: Doxycycline 100 MG CAP PO SCH ×2 (08:13→20:21)
[2023-01-21] MEDS: Allopurinol 100 MG TAB PO SCH ×2 (08:13→20:21)
[2023-01-21] MEDS: Fluticasone Propionate Nasal Spray 16 gm Bottle NASAL SCH ×2 (08:14→20:22)
[2023-01-21] MEDS: Acetaminophen 325 MG TAB PO PRN (16:47)
[2023-01-22] MEDS: cefTRIAXone\\ROCEPHIN 1 GM in Sodium Chloride 0.9% 100 ML IVPB SCH (00:27)
[2023-01-22] MEDS ORDERED: Guaifenesin DM 100-10/5 ML UDCUP PO PRN (00:39)
[2023-01-22 07:28] VITALS: BP 127/61; TEMP 98
[2023-01-22] MEDS: Amiodarone 200 MG TAB PO SCH (07:29)
[2023-01-22] MEDS: Allopurinol 100 MG TAB PO SCH (07:29)
[2023-01-22] MEDS: Loratadine 10 MG TAB PO SCH (07:29)
[2023-01-22] MEDS: guaiFENesin ER 600 MG TAB PO SCH (07:29)
[2023-01-22] MEDS: Fluticasone Propionate Nasal Spray 16 gm Bottle NASAL SCH (07:29)
[2023-01-22] MEDS: Digoxin 0.125 MG TAB PO SCH (07:29)
[2023-01-22] MEDS: Aspirin 81 mg Enteric Coated Tablet PO SCH (07:29)
[2023-01-22] MEDS: Apixaban 5 MG TAB PO SCH (07:29)
[2023-01-22] MEDS: Carvedilol 3.125 MG TAB PO SCH (07:29)
[2023-01-22] MEDS: Sacubitril 24MG/Valsartan 26 MG TAB PO SCH (07:29)
[2023-01-22] MEDS: Bumetanide 1 MG TAB PO SCH (07:30)
[2023-01-22] MEDS: Doxycycline 100 MG CAP PO SCH (07:30)
[2023-01-24 21:08] LABS: Mycoplasma pneumoniae IgG AB 498 U/mL (0-99); Mycoplasma pneumoniae IgM AB Less than 770 U/mL (0-769)
== END 2023-01-22 11:31 | disposition home or self-care (01) | DRG 193 ==
LOC: CSHERS 19:54 → CSHTELE 22:48 → OBSVTOIN 23:14
PROVIDERS: ADMIT Family Medicine; ATTEND Internal Medicine
DX: J18.9 Pneumonia, unspecified organism (principal); J96.21 Acute and chronic respiratory failure with hypoxia; Q22.4 Congenital tricuspid stenosis; Q22.0 Pulmonary valve atresia; I50.22 Chronic systolic (congestive) heart failure; I48.0 Paroxysmal atrial fibrillation; B34.9 Viral infection, unspecified; D75.1 Secondary polycythemia; R94.31 Abnormal electrocardiogram [ECG] [EKG]; R77.8 Other specified abnormalities of plasma proteins; Z86.16 Personal history of COVID-19; Z79.2 Long term (current) use of antibiotics; Z79.899 Other long term (current) drug therapy; Z79.82 Long term (current) use of aspirin; Z90.49 Acquired absence of other specified parts of digestive tract; Z98.890 Other specified postprocedural states; Z11.52 Encounter for screening for COVID-19
CPT/HCPCS: 36415; 71045; 80048; 80053; 80061; 83735; 84484; 85025; 85379; 87070; 87205; 87807; 93005; 93010; 93306; 94640; J0696; J1885; J3490; J7620

== ENCOUNTER 2023-01-31 14:16 | Inpatient (IN) | payer OTHER ==
[2023-01-31] MEDS ORDERED: Acetaminophen 500 MG TAB ONE (14:48)
[2023-01-31 15:18] LABS: #Eosinphils 0.2 10x3/uL (0.0-0.5); #Monocytes 0.8 10x3/uL (0.0-1.1); #Neutrophils 5.1 10x3/uL (1.5-8.4); %Basophils 0.6 % (0.0-2.0); %Eosinophils 2.6 % (0.0-6.0); %Lymphocytes 10.9 % (18.0-47.0); %Neutrophils 73.8 % (40.0-75.0); Hematocrit 58.3 % (38.8-50.0); Mean Corpuscular HGB CONC 29.2 g/dL (32.0-36.0); Mean Corpuscular Hemoglobin 22.8 pg (27.0-33.0); Mean Corpuscular Volume 78.3 fl (81.2-95.1); Mean Platelet Volume 10.1 fl (7.4-10.4); Platelet Count 217 10x3/uL (150-450); RBC Distribution Width 20.8 % (11.5-14.5); Red Blood Cell (RBC) Count 7.45 10x6/uL (4.32-5.72); White Blood Cell (WBC) Count 6.9 10x3/uL (3.5-10.5)
[2023-01-31 15:19] LABS: ALT (SGPT) 26 U/L (8-55); AST (SGOT) 36 U/L (5-34); Albumin 3.3 g/dL (3.5-5.0); Alkaline Phosphatase 110 U/L (40-110); Anion Gap 13 mmol/L (10-20); BUN (Urea Nitrogen) 21 mg/dL (8.9-20.6); Calc. Creatinine Clearance 0 mL/min (70-130); Calcium 8.2 mg/dL (7.8-10.44); Carbon Dioxide 19 mmol/L (22-29); Chloride 109 mmol/L (98-107); Estimated GFR 52; Globulin 3.4 g/dL (2.4-3.5); Glucose 143 mg/dL (70-105); Potassium 3.8 mmol/L (3.5-5.1); Protein, Total 6.7 g/dL (6.0-8.3); Sodium 137 mmol/L (136-145)
[2023-01-31 15:25] LABS: Troponin I 0.045 ng/mL (< 0.028)
[2023-01-31 15:40] LABS: SARS-CoV-2 NAA Rapid Test Not Detected (NotDetected)
[2023-01-31] MEDS ORDERED: Oseltamivir 6 MG/ML ORAL SUSP PO SCH ×2 (16:30→23:30)
[2023-01-31] MEDS ORDERED: Ondansetron PF 4 MG/2 ML Vial IVP PRN (18:23)
[2023-01-31] MEDS ORDERED: Ondansetron ODT 4 MG TAB PO PRN (18:23)
[2023-01-31] MEDS ORDERED: Senokot S 8.6-50 MG TAB PO PRN (18:23)
[2023-01-31] MEDS ORDERED: Bisacodyl 5 MG TAB PO PRN (18:23)
[2023-01-31] MEDS ORDERED: Lactated Ringer's 1,000 ML IV SCH (19:45)
[2023-01-31] MEDS: Benzonatate 100 MG CAP PO PRN (20:07)
[2023-01-31] MEDS: Allopurinol 100 MG TAB PO SCH (21:32)
[2023-01-31] MEDS: Apixaban 5 MG TAB PO SCH (21:33)
[2023-01-31] MEDS: Amiodarone 200 MG TAB PO SCH (21:33)
[2023-01-31] MEDS: Sacubitril 24MG/Valsartan 26 MG TAB PO SCH (21:33)
[2023-01-31] MEDS: Guaifenesin DM 100-10/5 ML UDCUP PO PRN (21:34)
[2023-02-01] MEDS: Acetaminophen 325 MG TAB PO PRN ×4 (00:25→22:15)
[2023-02-01] MEDS: Benzonatate 100 MG CAP PO PRN (00:26)
[2023-02-01 05:24] LABS: Anion Gap 12 mmol/L (10-20); BUN (Urea Nitrogen) 20 mg/dL (8.9-20.6); Calc. Creatinine Clearance 51 mL/min (70-130); Calcium 7.8 mg/dL (7.8-10.44); Carbon Dioxide 20 mmol/L (22-29); Chloride 110 mmol/L (98-107); Estimated GFR 63; Glucose 84 mg/dL (70-105); Potassium 3.5 mmol/L (3.5-5.1); Sodium 138 mmol/L (136-145)
[2023-02-01] MEDS: Guaifenesin DM 100-10/5 ML UDCUP PO PRN ×4 (06:14→22:15)
[2023-02-01] MEDS: Apixaban 5 MG TAB PO SCH ×2 (09:57→22:01)
[2023-02-01] MEDS: Aspirin 81 mg Enteric Coated Tablet PO SCH (09:57)
[2023-02-01] MEDS: Famotidine 20 MG TAB PO SCH (09:57)
[2023-02-01] MEDS: Carvedilol 3.125 MG TAB PO SCH ×2 (09:58→17:12)
[2023-02-01] MEDS: Allopurinol 100 MG TAB PO SCH ×2 (09:58→22:00)
[2023-02-01] MEDS: Sacubitril 24MG/Valsartan 26 MG TAB PO SCH ×2 (09:58→22:01)
[2023-02-01] MEDS: Digoxin 0.125 MG TAB PO SCH (09:58)
[2023-02-01] MEDS: Amiodarone 200 MG TAB PO SCH ×2 (09:58→22:01)
[2023-02-01] MEDS: Bumetanide 1 MG TAB PO SCH (10:00)
[2023-02-01] MEDS: Famotidine/PF 20 mg/2ml Vial SLOW IVP SCH (10:05)
[2023-02-01] MEDS: Oseltamivir 6 MG/ML ORAL SUSP PO SCH ×2 (11:09→22:04)
[2023-02-01] MEDS ORDERED: Bumetanide 1 MG/4 ML VIAL IVP SCH (15:00)
[2023-02-02] MEDS: Acetaminophen 325 MG TAB PO PRN (06:50)
[2023-02-02] MEDS: Ipratropium/Albuterol 3 ML NEB NEB PRN (08:23)
[2023-02-02] MEDS: Guaifenesin DM 100-10/5 ML UDCUP PO PRN ×2 (09:39→18:43)
[2023-02-02] MEDS: Amiodarone 200 MG TAB PO SCH ×2 (09:40→20:53)
[2023-02-02] MEDS: Bumetanide 1 MG TAB PO SCH (09:40)
[2023-02-02] MEDS: Apixaban 5 MG TAB PO SCH ×2 (09:40→21:03)
[2023-02-02] MEDS: Sacubitril 24MG/Valsartan 26 MG TAB PO SCH (09:40)
[2023-02-02] MEDS: Digoxin 0.125 MG TAB PO SCH (09:40)
[2023-02-02] MEDS: Aspirin 81 mg Enteric Coated Tablet PO SCH (09:40)
[2023-02-02] MEDS: Famotidine 20 MG TAB PO SCH (09:41)
[2023-02-02] MEDS: Allopurinol 100 MG TAB PO SCH ×2 (09:41→21:03)
[2023-02-02] MEDS: Carvedilol 3.125 MG TAB PO SCH (09:41)
[2023-02-02] MEDS: Famotidine/PF 20 mg/2ml Vial SLOW IVP SCH (09:50)
[2023-02-02] MEDS ORDERED: traMADol HCl 50 MG TAB PO PRN (09:51)
[2023-02-02] MEDS ORDERED: Morphine 2 MG/ML VIAL SLOW IVP PRN (09:54)
[2023-02-02] MEDS ORDERED: Magnesium 2 GM/50 ML(in water) 2 GM in Premix 1 BAG IVPB SCH (10:00)
[2023-02-02] MEDS: Acetaminophen 500 MG TAB PO SCH ×4 (11:26→21:05)
[2023-02-02] MEDS: Oseltamivir 6 MG/ML ORAL SUSP PO SCH ×2 (11:35→21:03)
[2023-02-02] MEDS: D5 1/2 NS w/20 mEq KCL 1,000 ML IV SCH (12:49)
[2023-02-02 16:41] LABS: #Basophils 0.1 10x3/uL (0.0-0.2); #Monocytes 0.8 10x3/uL (0.0-1.1); #Neutrophils 3.6 10x3/uL (1.5-8.4); %Basophils 1.1 % (0.0-2.0); %Eosinophils 0.6 % (0.0-6.0); %Lymphocytes 28.3 % (18.0-47.0); %Neutrophils 56.5 % (40.0-75.0); Hematocrit 58.9 % (38.8-50.0); Hemoglobin 17.3 g/dL (13.5-17.5); Mean Corpuscular HGB CONC 29.4 g/dL (32.0-36.0); Mean Corpuscular Hemoglobin 22.8 pg (27.0-33.0); Mean Corpuscular Volume 77.6 fl (81.2-95.1); Mean Platelet Volume 10.3 fl (7.4-10.4); Platelet Count 173 10x3/uL (150-450); RBC Distribution Width 21.1 % (11.5-14.5); Red Blood Cell (RBC) Count 7.59 10x6/uL (4.32-5.72); White Blood Cell (WBC) Count 6.4 10x3/uL (3.5-10.5)
[2023-02-02 17:27] LABS: Anion Gap 13 mmol/L (10-20); BUN (Urea Nitrogen) 27 mg/dL (8.9-20.6); Calc. Creatinine Clearance 33 mL/min (70-130); Carbon Dioxide 22 mmol/L (22-29); Chloride 101 mmol/L (98-107); Estimated GFR 38; Glucose 91 mg/dL (70-105); Sodium 132 mmol/L (136-145)
[2023-02-02] MEDS ORDERED: D5 1/2 NS w/20 mEq KCL 1,000 ML IV SCH (18:00)
[2023-02-02] MEDS: Benzonatate 100 MG CAP PO PRN (18:43)
[2023-02-02 21:25] LABS: Bilirubin Neg (Negative); Blood, Urine Negative (Negative); Clarity Clear (Clear); Glucose, Urine (Dipstick) Normal (Negative); Ketone, Urine Negative (Negative); Leukocyte Negative (Negative); Nitrite Negative (Negative); Protein, Urine (Dipstick) 15 mg/dl (Neg-Trace); Urobilinogen Normal mg/dL (Less than 2)
[2023-02-02 21:42] LABS: Bacteria/HPF Rare-Few HPF (None Seen); RBC/HPF None Seen HPF (0-3); Squamous Epithelial 0-3 HPF (0-3); WBC/HPF 0-3 HPF (0-3)
[2023-02-03] MEDS: Acetaminophen 500 MG TAB PO SCH ×4 (03:57→21:54)
[2023-02-03 04:08] LABS: Anion Gap 10 mmol/L (10-20); BUN (Urea Nitrogen) 30 mg/dL (8.9-20.6); Calc. Creatinine Clearance 31 mL/min (70-130); Calcium 7.8 mg/dL (7.8-10.44); Carbon Dioxide 23 mmol/L (22-29); Chloride 102 mmol/L (98-107); Estimated GFR 35; Glucose 83 mg/dL (70-105); Potassium 4.2 mmol/L (3.5-5.1); Sodium 131 mmol/L (136-145)
[2023-02-03 04:20] LABS: #Basophils 0.1 10x3/uL (0.0-0.2); #Eosinphils 0.1 10x3/uL (0.0-0.5); #Monocytes 0.8 10x3/uL (0.0-1.1); #Neutrophils 3.3 10x3/uL (1.5-8.4); %Basophils 0.9 % (0.0-2.0); %Eosinophils 1.9 % (0.0-6.0); %Lymphocytes 32.1 % (18.0-47.0); %Monocytes 12.2 % (0.0-10.0); %Neutrophils 52.5 % (40.0-75.0); Hematocrit 59.1 % (38.8-50.0); Mean Corpuscular HGB CONC 29.3 g/dL (32.0-36.0); Mean Corpuscular Hemoglobin 22.6 pg (27.0-33.0); Mean Corpuscular Volume 77.2 fl (81.2-95.1); Mean Platelet Volume 10.8 fl (7.4-10.4); Platelet Count 155 10x3/uL (150-450); RBC Distribution Width 20.9 % (11.5-14.5); Red Blood Cell (RBC) Count 7.55 10x6/uL (4.32-5.72); White Blood Cell (WBC) Count 6.3 10x3/uL (3.5-10.5)
[2023-02-03 04:30] LABS: Free T4 (Free Thyroxine) 1.24 ng/dL (0.70-1.48)
[2023-02-03] MEDS: D5 1/2 NS w/20 mEq KCL 1,000 ML IV SCH (05:40)
[2023-02-03] MEDS: Allopurinol 100 MG TAB PO SCH ×2 (08:40→21:55)
[2023-02-03] MEDS: Famotidine 20 MG TAB PO SCH (08:40)
[2023-02-03] MEDS: Amiodarone 200 MG TAB PO SCH ×2 (08:40→21:55)
[2023-02-03] MEDS: Aspirin 81 mg Enteric Coated Tablet PO SCH (08:40)
[2023-02-03] MEDS: Apixaban 5 MG TAB PO SCH ×2 (08:40→20:30)
[2023-02-03] MEDS: Digoxin 0.125 MG TAB PO SCH (08:41)
[2023-02-03] MEDS: Famotidine/PF 20 mg/2ml Vial SLOW IVP SCH (08:41)
[2023-02-03 09:25] VITALS: BMI 18.1
[2023-02-03] MEDS: Oseltamivir 6 MG/ML ORAL SUSP PO SCH ×2 (09:48→21:56)
[2023-02-03] MEDS: Guaifenesin DM 100-10/5 ML UDCUP PO PRN ×2 (11:17→22:52)
[2023-02-03] MEDS: Benzonatate 100 MG CAP PO PRN (17:07)
[2023-02-04] MEDS: Ipratropium/Albuterol 3 ML NEB NEB PRN (01:05)
[2023-02-04] MEDS: D5 1/2 NS w/20 mEq KCL 1,000 ML IV SCH ×3 (03:25→21:18)
[2023-02-04 04:18] LABS: #Eosinphils 0.2 10x3/uL (0.0-0.5); #Monocytes 0.7 10x3/uL (0.0-1.1); #Neutrophils 3.1 10x3/uL (1.5-8.4); %Basophils 0.7 % (0.0-2.0); %Eosinophils 2.6 % (0.0-6.0); %Lymphocytes 31.1 % (18.0-47.0); %Neutrophils 53.4 % (40.0-75.0); Hemoglobin 16.4 g/dL (13.5-17.5); Mean Corpuscular HGB CONC 29.3 g/dL (32.0-36.0); Mean Corpuscular Hemoglobin 22.6 pg (27.0-33.0); Mean Corpuscular Volume 77.2 fl (81.2-95.1); Mean Platelet Volume 10.7 fl (7.4-10.4); Platelet Count 161 10x3/uL (150-450); RBC Distribution Width 20.9 % (11.5-14.5); Red Blood Cell (RBC) Count 7.25 10x6/uL (4.32-5.72); White Blood Cell (WBC) Count 5.8 10x3/uL (3.5-10.5)
[2023-02-04 04:27] LABS: Anion Gap 10 mmol/L (10-20); BUN (Urea Nitrogen) 22 mg/dL (8.9-20.6); Calc. Creatinine Clearance 48 mL/min (70-130); Calcium 7.6 mg/dL (7.8-10.44); Carbon Dioxide 18 mmol/L (22-29); Chloride 109 mmol/L (98-107); Estimated GFR 51; Glucose 106 mg/dL (70-105); Potassium 4.1 mmol/L (3.5-5.1); Sodium 133 mmol/L (136-145)
[2023-02-04] MEDS: Guaifenesin DM 100-10/5 ML UDCUP PO PRN ×4 (04:28→21:18)
[2023-02-04] MEDS: Acetaminophen 500 MG TAB PO SCH ×4 (04:28→21:17)
[2023-02-04] MEDS: Famotidine/PF 20 mg/2ml Vial SLOW IVP SCH (07:23)
[2023-02-04] MEDS: Bumetanide 1 MG TAB PO SCH (07:48)
[2023-02-04] MEDS: Benzonatate 100 MG CAP PO PRN (07:48)
[2023-02-04] MEDS: Oseltamivir 6 MG/ML ORAL SUSP PO SCH ×2 (07:48→21:18)
[2023-02-04] MEDS: Allopurinol 100 MG TAB PO SCH ×2 (07:49→21:17)
[2023-02-04] MEDS: Famotidine 20 MG TAB PO SCH (07:49)
[2023-02-04] MEDS: Amiodarone 200 MG TAB PO SCH ×2 (07:49→21:17)
[2023-02-04] MEDS: Aspirin 81 mg Enteric Coated Tablet PO SCH (07:49)
[2023-02-04] MEDS: Apixaban 5 MG TAB PO SCH ×2 (09:15→21:00)
[2023-02-04 17:02] VITALS: BP 118/55; TEMP 97.4
[2023-02-05] MEDS: Acetaminophen 500 MG TAB PO SCH ×3 (04:22→16:39)
[2023-02-05 04:23] LABS: #Basophils 0.1 10x3/uL (0.0-0.2); #Monocytes 1.3 10x3/uL (0.0-1.1); #Neutrophils 5.6 10x3/uL (1.5-8.4); %Basophils 0.5 % (0.0-2.0); %Eosinophils 9.4 % (0.0-6.0); %Lymphocytes 21.7 % (18.0-47.0); %Monocytes 13.2 % (0.0-10.0); Hematocrit 58.9 % (38.8-50.0); Hemoglobin 17.6 g/dL (13.5-17.5); Mean Corpuscular HGB CONC 29.9 g/dL (32.0-36.0); Mean Corpuscular Volume 77.1 fl (81.2-95.1); Mean Platelet Volume 10.1 fl (7.4-10.4); Platelet Count 156 10x3/uL (150-450); Red Blood Cell (RBC) Count 7.64 10x6/uL (4.32-5.72); White Blood Cell (WBC) Count 10.2 10x3/uL (3.5-10.5)
[2023-02-05 04:39] LABS: Anion Gap 12 mmol/L (10-20); BUN (Urea Nitrogen) 17 mg/dL (8.9-20.6); Calc. Creatinine Clearance 50 mL/min (70-130); Calcium 8.4 mg/dL (7.8-10.44); Carbon Dioxide 20 mmol/L (22-29); Chloride 105 mmol/L (98-107); Estimated GFR 56; Glucose 85 mg/dL (70-105); Potassium 5.4 mmol/L (3.5-5.1); Sodium 132 mmol/L (136-145)
[2023-02-05] MEDS: Allopurinol 100 MG TAB PO SCH (08:16)
[2023-02-05] MEDS: Apixaban 5 MG TAB PO SCH (08:16)
[2023-02-05] MEDS: Famotidine 20 MG TAB PO SCH (08:16)
[2023-02-05] MEDS: Aspirin 81 mg Enteric Coated Tablet PO SCH (08:16)
[2023-02-05] MEDS: Amiodarone 200 MG TAB PO SCH (08:16)
[2023-02-05] MEDS: Guaifenesin DM 100-10/5 ML UDCUP PO PRN ×3 (08:18→16:39)
[2023-02-05] MEDS: Bumetanide 1 MG TAB PO SCH (08:22)
[2023-02-05] MEDS: Famotidine/PF 20 mg/2ml Vial SLOW IVP SCH (09:01)
[2023-02-05] MEDS: Oseltamivir 6 MG/ML ORAL SUSP PO SCH (09:14)
[2023-02-05] MEDS: Benzonatate 100 MG CAP PO PRN (11:11)
[2023-02-05 12:43] LABS: Anion Gap 12 mmol/L (10-20); BUN (Urea Nitrogen) 16 mg/dL (8.9-20.6); Calc. Creatinine Clearance 55 mL/min (70-130); Calcium 8.3 mg/dL (7.8-10.44); Carbon Dioxide 21 mmol/L (22-29); Chloride 105 mmol/L (98-107); Estimated GFR 63; Glucose 84 mg/dL (70-105); Potassium 4.9 mmol/L (3.5-5.1); Sodium 133 mmol/L (136-145)
[2023-02-05] MEDS ORDERED: Oseltamivir 6 MG/ML ORAL SUSP PO SCH (17:00)
[2023-02-05] MEDS ORDERED: Famotidine 20 MG TAB PO SCH (21:00)
== END 2023-02-05 18:00 | disposition home or self-care (01) | DRG 871 ==
LOC: CSHERS 14:16 → CSHTELE 18:05 → CSHICU 02-02 16:11
PROVIDERS: ADMIT Family Medicine; ATTEND Internal Medicine
DX: A41.89 Other specified sepsis (principal); I21.A1 Myocardial infarction type 2; J96.21 Acute and chronic respiratory failure with hypoxia; I50.22 Chronic systolic (congestive) heart failure; N17.9 Acute kidney failure, unspecified; E87.1 Hypo-osmolality and hyponatremia; J10.1 Influenza due to other identified influenza virus with other respiratory manifestations; R65.20 Severe sepsis without septic shock; I48.0 Paroxysmal atrial fibrillation; M10.9 Gout, unspecified; D75.1 Secondary polycythemia; I95.9 Hypotension, unspecified; N18.2 Chronic kidney disease, stage 2 (mild); E87.6 Hypokalemia; Z90.49 Acquired absence of other specified parts of digestive tract; Z88.0 Allergy status to penicillin; Z79.82 Long term (current) use of aspirin; Z79.899 Other long term (current) drug therapy; Z11.52 Encounter for screening for COVID-19; Z88.5 Allergy status to narcotic agent
CPT/HCPCS: 0241U; 36415; 71045; 71046; 80048; 80053; 81001; 82533; 83880; 84439; 84443; 84481; 84484; 85025; 93005; 94640; 94760; 94762; J2272; J3475; J3480; J3490; J7120; J7620

== ENCOUNTER 2023-03-05 19:58 | Observation (INO) | payer OTHER ==
[2023-03-05 20:50] LABS: #Basophils 0.1 10x3/uL (0.0-0.2); #Eosinphils 0.3 10x3/uL (0.0-0.5); #Neutrophils 14.1 10x3/uL (1.5-8.4); %Basophils 0.6 % (0.0-2.0); %Eosinophils 1.5 % (0.0-6.0); %Lymphocytes 12.9 % (18.0-47.0); %Monocytes 10.5 % (0.0-10.0); %Neutrophils 73.9 % (40.0-75.0); Hematocrit 57.7 % (38.8-50.0); Hemoglobin 17.5 g/dL (13.5-17.5); Mean Corpuscular HGB CONC 30.3 g/dL (32.0-36.0); Mean Corpuscular Volume 79.1 fl (81.2-95.1); Mean Platelet Volume 10.9 fl (7.4-10.4); Platelet Count 227 10x3/uL (150-450); Red Blood Cell (RBC) Count 7.29 10x6/uL (4.32-5.72); White Blood Cell (WBC) Count 19.1 10x3/uL (3.5-10.5)
[2023-03-05 21:07] LABS: ALT (SGPT) 18 U/L (8-55); AST (SGOT) 19 U/L (5-34); Albumin 3.7 g/dL (3.5-5.0); Alkaline Phosphatase 107 U/L (40-110); Anion Gap 17 mmol/L (10-20); BUN (Urea Nitrogen) 16 mg/dL (8.9-20.6); Bilirubin, Total 2.4 mg/dL (0.2-1.2); Calc. Creatinine Clearance 0 mL/min (70-130); Calcium 8.9 mg/dL (7.8-10.44); Carbon Dioxide 22 mmol/L (22-29); Chloride 103 mmol/L (98-107); Estimated GFR 67; Globulin 3.2 g/dL (2.4-3.5); Glucose 88 mg/dL (70-105); Magnesium 1.8 mg/dL (1.6-2.6); Potassium 4.3 mmol/L (3.5-5.1); Protein, Total 6.9 g/dL (6.0-8.3); Sodium 138 mmol/L (136-145); Troponin I 0.027 ng/mL (< 0.028)
[2023-03-05 21:23] LABS: SARS-CoV-2 NAA Rapid Test Not Detected (NotDetected)
[2023-03-05 21:36] LABS: Acetaminophen Less than 10 mcg/mL (10.0-30.0); Alcohol Less than 10.0 mg/dL (Less than 10); Salicylate Less than 8.0 mg/dL (15.0-30.0)
[2023-03-05] MEDS ORDERED: guaiFENesin/DM ER PO SCH (23:30)
[2023-03-06] MEDS ORDERED: Benzonatate 100 MG CAP ONE (01:03)
[2023-03-06] MEDS ORDERED: predniSONE 20 MG TAB ONE ×2 (02:02→09:55)
[2023-03-06] MEDS ORDERED: Ipratropium/Albuterol 3 ML NEB ONE (02:13)
[2023-03-06 04:03] LABS: Troponin I 0.054 ng/mL (< 0.028)
[2023-03-06] MEDS ORDERED: Aspirin 81 mg Enteric Coated Tablet ONE (04:09)
[2023-03-06] MEDS ORDERED: Senokot S 8.6-50 MG TAB PO PRN (08:29)
[2023-03-06] MEDS ORDERED: Acetaminophen 325 MG TAB PO PRN (08:29)
[2023-03-06] MEDS ORDERED: guaiFENesin/DM ER PO SCH (09:00)
[2023-03-06] MEDS ORDERED: Aspirin Chewable 81 MG TAB ONE (09:56)
[2023-03-06] MEDS ORDERED: Apixaban 5 MG TAB ONE (09:56)
[2023-03-06] MEDS ORDERED: Amiodarone 200 MG TAB ONE (09:56)
[2023-03-06] MEDS ORDERED: Digoxin 0.125 MG TAB ONE (09:58)
[2023-03-06] MEDS ORDERED: Carvedilol 3.125 MG TAB ONE (09:59)
[2023-03-06] MEDS ORDERED: Digoxin 0.125 MG TAB PO SCH (10:00)
[2023-03-06] MEDS ORDERED: Famotidine 20 MG TAB ONE (10:10)
[2023-03-06] MEDS: Amiodarone 200 MG TAB PO SCH ×2 (10:27→20:22)
[2023-03-06] MEDS: Famotidine 20 MG TAB PO SCH ×2 (10:28→20:22)
[2023-03-06] MEDS: Bumetanide 1 MG TAB PO SCH (10:28)
[2023-03-06] MEDS: Apixaban 5 MG TAB PO SCH ×2 (10:28→20:22)
[2023-03-06] MEDS: Sacubitril 24MG/Valsartan 26 MG TAB PO SCH ×2 (10:28→20:23)
[2023-03-06 15:55] LABS: Analyzer IN Cardio CS ER; Base Excess 1.6 mEq/L (-2 - +2); Calcium, Ionized (venous) 1.06 mmol/L (1.16-1.32); Chloride (VBG) 101 mmol/L (98-106); Critical Notified By: CP.PH; Hematocrit-VBG 56 % (42.0-52.0); Hemoglobin (Hb) 18.9 g/dL (13.1-17.2); Potassium (VBG) 4.13 mmol/L (3.70-5.30); Puncture Site Other Site; Sodium 139 mmol/L (133-146); pH (venous) 7.428 (7.32-7.43)
[2023-03-06 17:30] VITALS: BMI 16.2
[2023-03-06] MEDS: Carvedilol 3.125 MG TAB PO SCH (18:47)
[2023-03-06] MEDS: Digoxin 0.125 MG TAB PO SCH (20:22)
[2023-03-06] MEDS: Ipratropium/Albuterol 3 ML NEB NEB PRN (20:32)
[2023-03-06] MEDS: Guaifenesin DM 100-10/5 ML UDCUP PO PRN (23:26)
[2023-03-07 03:57] LABS: Anion Gap 16 mmol/L (10-20); BUN (Urea Nitrogen) 30 mg/dL (8.9-20.6); Calc. Creatinine Clearance 43 mL/min (70-130); Calcium 8.4 mg/dL (7.8-10.44); Carbon Dioxide 21 mmol/L (22-29); Chloride 105 mmol/L (98-107); Estimated GFR 51; Glucose 78 mg/dL (70-105); Sodium 138 mmol/L (136-145)
[2023-03-07] MEDS: Guaifenesin DM 100-10/5 ML UDCUP PO PRN (04:05)
[2023-03-07 04:08] LABS: Hemoglobin 15.9 g/dL (13.5-17.5); Mean Corpuscular HGB CONC 30.6 g/dL (32.0-36.0); Mean Corpuscular Hemoglobin 24.3 pg (27.0-33.0); Mean Corpuscular Volume 79.6 fl (81.2-95.1); Mean Platelet Volume 10.5 fl (7.4-10.4); Platelet Count 219 10x3/uL (150-450); RBC Distribution Width 22.5 % (11.5-14.5); Red Blood Cell (RBC) Count 6.53 10x6/uL (4.32-5.72); White Blood Cell (WBC) Count 28.8 10x3/uL (3.5-10.5)
[2023-03-07 04:22] LABS: MDiff Complete? YES
[2023-03-07 05:15] LABS: Band 3 % (5-11); Lymphocytes 4 % (21-51); Monocytes 4 % (0-10); Neutrophil 89 % (42-75)
[2023-03-07 05:20] LABS: Hypochromia SLIGHT = 6-15 cells (100X) (0-5/hpf); Microcytosis SLIGHT = 6-15 cells (100X) (0-5/hpf); Platelet Adequacy Comment Appears Adequate; Target Cells SLIGHT = 2-5 cells (100X) (0-1/hpf)
[2023-03-07] MEDS: Ipratropium/Albuterol 3 ML NEB NEB PRN (07:30)
[2023-03-07] MEDS ORDERED: LevoFLOXacin 750 MG TAB PO SCH (08:00)
[2023-03-07 08:52] VITALS: BP 120/54; TEMP 98.1
[2023-03-07] MEDS ORDERED: guaiFENesin/Codeine Phosphate 100 mg/10 mg 5 ml UD Cup PO PRN (08:52)
[2023-03-07] MEDS: Sacubitril 24MG/Valsartan 26 MG TAB PO SCH (08:55)
[2023-03-07] MEDS: Carvedilol 3.125 MG TAB PO SCH (08:55)
[2023-03-07] MEDS: Digoxin 0.125 MG TAB PO SCH (08:55)
[2023-03-07] MEDS: Apixaban 5 MG TAB PO SCH (08:55)
[2023-03-07] MEDS: Amiodarone 200 MG TAB PO SCH (08:56)
[2023-03-07] MEDS ORDERED: Aspirin 81 mg Enteric Coated Tablet PO SCH (09:00)
[2023-03-07] MEDS ORDERED: predniSONE 20 MG TAB PO SCH (09:00)
[2023-03-07] MEDS: Bumetanide 1 MG TAB PO SCH (12:16)
[2023-03-07] MEDS ORDERED: Famotidine 20 MG TAB PO SCH (21:00)
[2023-03-09] MEDS ORDERED: LevoFLOXacin 750 MG TAB PO SCH (06:00)
== END 2023-03-07 12:16 | disposition home or self-care (01) ==
LOC: CSHERS 19:58 → CSHERHOLD 03-06 07:54 → CSHTELE 03-06 18:08
PROVIDERS: ADMIT Internal Medicine; ATTEND Nurse Practitioner Acute Care
DX: J96.21 Acute and chronic respiratory failure with hypoxia (principal); I50.22 Chronic systolic (congestive) heart failure; I48.0 Paroxysmal atrial fibrillation; D72.829 Elevated white blood cell count, unspecified; M10.9 Gout, unspecified; Z79.01 Long term (current) use of anticoagulants; Z79.899 Other long term (current) drug therapy; Z79.82 Long term (current) use of aspirin; Z88.0 Allergy status to penicillin; Z88.5 Allergy status to narcotic agent; Z86.16 Personal history of COVID-19; Z90.89 Acquired absence of other organs; Z98.890 Other specified postprocedural states
CPT/HCPCS: 36415; 71045; 71250; 80048; 80053; 80307; 82805; 83735; 83880; 84484; 85025; 85379; 93005; 94640; 94760; 94762; G0378; J7512; J7620

== ENCOUNTER 2023-04-12 12:36 | Inpatient (IN) | payer OTHER ==
[2023-04-12 13:58] LABS: #Basophils 0.1 10x3/uL (0.0-0.2); #Eosinphils 0.1 10x3/uL (0.0-0.5); #Monocytes 1.5 10x3/uL (0.0-1.1); #Neutrophils 6.6 10x3/uL (1.5-8.4); %Eosinophils 1.3 % (0.0-6.0); %Lymphocytes 15.1 % (18.0-47.0); %Monocytes 15.4 % (0.0-10.0); %Neutrophils 66.5 % (40.0-75.0); Hematocrit 60.7 % (38.8-50.0); Hemoglobin 18.1 g/dL (13.5-17.5); Mean Corpuscular HGB CONC 29.8 g/dL (32.0-36.0); Mean Corpuscular Hemoglobin 23.8 pg (27.0-33.0); Mean Platelet Volume 9.9 fl (7.4-10.4); Platelet Count 259 10x3/uL (150-450); RBC Distribution Width 19.9 % (11.5-14.5); Red Blood Cell (RBC) Count 7.59 10x6/uL (4.32-5.72); White Blood Cell (WBC) Count 9.9 10x3/uL (3.5-10.5)
[2023-04-12 14:29] LABS: Influenza A by NAA Not Detected (NotDetected); Influenza B by NAA Not Detected (NotDetected); SARS-CoV-2 NAA Rapid Test DETECTED (NotDetected)
[2023-04-12 14:32] LABS: Troponin I 0.042 ng/mL (< 0.028)
[2023-04-12 14:35] LABS: ALT (SGPT) 23 U/L (8-55); Albumin 4.2 g/dL (3.5-5.0); Alkaline Phosphatase 119 U/L (40-110); Anion Gap 16 mmol/L (10-20); BUN (Urea Nitrogen) 18 mg/dL (8.9-20.6); Bilirubin, Total 0.9 mg/dL (0.2-1.2); Calc. Creatinine Clearance 0 mL/min (70-130); Calcium 8.9 mg/dL (7.8-10.44); Carbon Dioxide 22 mmol/L (22-29); Chloride 105 mmol/L (98-107); Estimated GFR 43; Globulin 3.6 g/dL (2.4-3.5); Glucose 88 mg/dL (70-105); Potassium 4.7 mmol/L (3.5-5.1); Protein, Total 7.8 g/dL (6.0-8.3); Sodium 138 mmol/L (136-145)
[2023-04-12 14:37] LABS: AST (SGOT) 39 U/L (5-34); Magnesium 1.8 mg/dL (1.6-2.6)
[2023-04-12] MEDS ORDERED: Azithromycin 500 MG VIAL ONE (15:14)
[2023-04-12] MEDS ORDERED: cefTRIAXone (ROCEPHIN) 2 GM VIAL ONE (15:14)
[2023-04-12] MEDS ORDERED: Dexamethasone 10 MG/ML VIAL ONE (15:14)
[2023-04-12] MEDS ORDERED: Ondansetron ODT 4 MG TAB PO PRN (15:20)
[2023-04-12] MEDS ORDERED: Ondansetron PF 4 MG/2 ML Vial IVP PRN (15:20)
[2023-04-12] MEDS ORDERED: Ketorolac Tromethamine 30 MG (1 mL) VIAL ONE (15:29)
[2023-04-12] MEDS ORDERED: Acetaminophen 500 MG TAB ONE (15:29)
[2023-04-12] MEDS ORDERED: Ventolin HFA Inhaler 60 PUFF INHALER INH PRN (15:37)
[2023-04-12 19:53] LABS: Troponin I 0.051 ng/mL (< 0.028)
[2023-04-12] MEDS ORDERED: Dexamethasone 4 mg/ml Vial ONE (20:41)
[2023-04-12] MEDS ORDERED: Apixaban 5 MG TAB ONE (20:41)
[2023-04-12] MEDS ORDERED: Amiodarone 200 MG TAB ONE (20:41)
[2023-04-12] MEDS: Amiodarone 200 MG TAB PO SCH (20:55)
[2023-04-12] MEDS: Apixaban 5 MG TAB PO SCH (20:55)
[2023-04-12] MEDS ORDERED: Dexamethasone 4 mg/ml Vial SLOW IVP SCH (21:00)
[2023-04-12] MEDS: REMDESIVIR 200 MG in Sodium Chloride 0.9% 250 ML 210 ML IV SCH (22:05)
[2023-04-12] MEDS: Allopurinol 100 MG TAB PO SCH (22:05)
[2023-04-12] MEDS: Sacubitril 24MG/Valsartan 26 MG TAB PO SCH (22:05)
[2023-04-13] MEDS: Acetaminophen 325 MG TAB PO PRN (01:03)
[2023-04-13 03:08] VITALS: BMI 17.0
[2023-04-13 03:38] LABS: %Basophils 0.4 % (0.0-2.0); %Eosinophils 0.4 % (0.0-6.0); %Lymphocytes 11.9 % (18.0-47.0); %Monocytes 0.9 % (0.0-10.0); Hemoglobin 16.5 g/dL (13.5-17.5); Mean Corpuscular Volume 79.9 fl (81.2-95.1); Platelet Count 246 10x3/uL (150-450); RBC Distribution Width 19.2 % (11.5-14.5); Red Blood Cell (RBC) Count 6.88 10x6/uL (4.32-5.72); White Blood Cell (WBC) Count 4.6 10x3/uL (3.5-10.5)
[2023-04-13 03:48] LABS: Anion Gap 13 mmol/L (10-20); BUN (Urea Nitrogen) 24 mg/dL (8.9-20.6); Calc. Creatinine Clearance 0 mL/min (70-130); Calcium 7.9 mg/dL (7.8-10.44); Carbon Dioxide 20 mmol/L (22-29); Chloride 104 mmol/L (98-107); Estimated GFR 41; Glucose 209 mg/dL (70-105); Potassium 3.7 mmol/L (3.5-5.1); Sodium 133 mmol/L (136-145)
[2023-04-13] MEDS: Carvedilol 3.125 MG TAB PO SCH (08:55)
[2023-04-13] MEDS: Digoxin 0.125 MG TAB PO SCH (08:56)
[2023-04-13] MEDS: Aspirin 81 mg Enteric Coated Tablet PO SCH (08:57)
[2023-04-13] MEDS: Dexamethasone 4 mg/ml Vial SLOW IVP SCH (08:59)
[2023-04-13] MEDS: Ipratropium/Albuterol 3 ML NEB NEB PRN (12:00)
[2023-04-13] MEDS: Bumetanide 1 MG TAB PO SCH (12:09)
[2023-04-13] MEDS: FLU VACC QS2023-24(6MOS UP)/PF 60 MCG/0.5 ML SYRINGE IM ONE (14:18)
[2023-04-13] MEDS: REMDESIVIR 100 MG in Sodium Chloride 0.9% 250 ML 230 ML IV SCH (21:18)
[2023-04-14 04:57] LABS: #Monocytes 0.7 10x3/uL (0.0-1.1); #Neutrophils 17.8 10x3/uL (1.5-8.4); %Basophils 0.1 % (0.0-2.0); %Lymphocytes 5.3 % (18.0-47.0); %Monocytes 3.7 % (0.0-10.0); %Neutrophils 90.3 % (40.0-75.0); Mean Corpuscular HGB CONC 30.8 g/dL (32.0-36.0); Mean Corpuscular Hemoglobin 24.7 pg (27.0-33.0); Mean Corpuscular Volume 80.1 fl (81.2-95.1); Mean Platelet Volume 10.8 fl (7.4-10.4); Platelet Count 276 10x3/uL (150-450); RBC Distribution Width 18.7 % (11.5-14.5); Red Blood Cell (RBC) Count 6.49 10x6/uL (4.32-5.72); White Blood Cell (WBC) Count 19.7 10x3/uL (3.5-10.5)
[2023-04-14 05:09] LABS: Anion Gap 11 mmol/L (10-20); BUN (Urea Nitrogen) 27 mg/dL (8.9-20.6); Calc. Creatinine Clearance 47 mL/min (70-130); Calcium 7.5 mg/dL (7.8-10.44); Carbon Dioxide 21 mmol/L (22-29); Chloride 108 mmol/L (98-107); Estimated GFR 53; Glucose 116 mg/dL (70-105); Potassium 3.7 mmol/L (3.5-5.1); Sodium 136 mmol/L (136-145)
[2023-04-14 14:08] VITALS: BP 112/50; TEMP 98.2
== END 2023-04-14 14:05 | disposition home or self-care (01) | DRG 871 ==
LOC: CSHERS 12:36 → CSHERHOLD 15:21 → CSHTELE 04-13 00:21
PROVIDERS: ADMIT Family Medicine; ATTEND Internal Medicine
PROC: 3E03329 Introduction of Other Anti-infective into Peripheral Vein, Percutaneous Approach (ICD-10-PCS; principal; 2023-04-12)
PROC: 8E0ZXY6 Isolation (ICD-10-PCS; 2023-04-12)
PROC: 3E0333Z Introduction of Anti-inflammatory into Peripheral Vein, Percutaneous Approach (ICD-10-PCS; 2023-04-12)
DX: A41.9 Sepsis, unspecified organism (principal); U07.1 COVID-19; I50.22 Chronic systolic (congestive) heart failure; I48.0 Paroxysmal atrial fibrillation; M10.9 Gout, unspecified; I27.20 Pulmonary hypertension, unspecified; N18.9 Chronic kidney disease, unspecified; Z88.5 Allergy status to narcotic agent; Z88.0 Allergy status to penicillin; Z90.49 Acquired absence of other specified parts of digestive tract; Z98.890 Other specified postprocedural states
CPT/HCPCS: 36415; 71045; 80048; 80053; 83605; 83735; 83880; 84484; 85025; 86140; 87040; 93005; 94640; 94760; 94762; 96365; 96367; 96375; J0248; J0456; J0696; J1100; J1885; J7050; J7620

== ENCOUNTER 2023-12-24 16:21 | Inpatient (IN) | payer OTHER ==
[2023-12-24 17:06] LABS: #Basophils 0.06 10x3/uL (0.0-0.2); #Eosinophils 0.25 10x3/uL (0.0-0.5); #Monocytes 1.22 10x3/uL (0.0-1.1); #Neutrophils 7.86 10x3/uL (1.5-8.4); %Basophils 0.5 % (0.0-2.0); %Eosinophils 2.1 % (0.0-6.0); %Lymphocytes 20.7 % (18.0-47.0); %Monocytes 10.3 % (0.0-10.0); %Neutrophils 66.1 % (40.0-75.0); Hematocrit 57.3 % (38.8-50.0); Hemoglobin 16.5 g/dL (13.5-17.5); Mean Corpuscular HGB CONC 28.8 g/dL (32.0-36.0); Mean Corpuscular Hemoglobin 22.7 pg (27.0-33.0); Mean Corpuscular Volume 78.8 fL (81.2-95.1); Mean Platelet Volume 9.6 fL (7.4-10.4); Platelet Count 299 10x3/uL (150-450); RBC Distribution Width 19.4 % (11.5-14.5); Red Blood Cell (RBC) Count 7.27 10x6/uL (4.32-5.72); White Blood Cell (WBC) Count 11.9 10x3/uL (3.5-10.5)
[2023-12-24 17:15] LABS: ALT (SGPT) 31 U/L (8-55); AST (SGOT) 37 U/L (5-34); Albumin 3.5 g/dL (3.5-5.0); Alkaline Phosphatase 120 U/L (40-110); Anion Gap 14 mmol/L (10-20); BUN (Urea Nitrogen) 22 mg/dL (8.9-20.6); Bilirubin, Total 1.1 mg/dL (0.2-1.2); Calc. Creatinine Clearance 0 mL/min (70-130); Calcium 8.9 mg/dL (7.8-10.44); Carbon Dioxide 22 mmol/L (22-29); Chloride 105 mmol/L (98-107); Estimated GFR 39; Globulin 3.7 g/dL (2.4-3.5); Glucose 81 mg/dL (70-105); Potassium 4.4 mmol/L (3.5-5.1); Protein, Total 7.2 g/dL (6.0-8.3); Sodium 137 mmol/L (136-145)
[2023-12-24 17:19] LABS: Troponin I 0.048 ng/mL (< 0.028)
[2023-12-24 17:24] LABS: Hypochromia SLIGHT = 6-15 cells (100X) (0-5/hpf); Microcytosis SLIGHT = 6-15 cells (100X) (0-5/hpf); Platelet Adequacy Comment Appears Adequate; Stomatocytes SLIGHT = 2-5 cells (100X) (0-1/hpf)
[2023-12-24 18:51] LABS: Lipase 52 U/L (8-78)
[2023-12-24] MEDS ORDERED: Azithromycin 500 MG VIAL ONE (20:13)
[2023-12-24] MEDS ORDERED: Aspirin Chewable 81 MG TAB ONE (20:13)
[2023-12-24] MEDS ORDERED: cefTRIAXone (ROCEPHIN) 2 GM VIAL ONE (20:13)
[2023-12-24] MEDS ORDERED: Guaifenesin DM 100-10/5 ML UDCUP PO PRN (20:53)
[2023-12-24] MEDS ORDERED: Acetaminophen 325 MG TAB PO PRN (20:53)
[2023-12-24] MEDS ORDERED: Senokot S 8.6-50 MG TAB PO PRN (20:53)
[2023-12-24] MEDS ORDERED: Calcium Carbonate 500 MG ChewTAB PO PRN (20:53)
[2023-12-24] MEDS ORDERED: Ondansetron PF 4 MG/2 ML Vial IVP PRN (20:53)
[2023-12-24] MEDS ORDERED: Albuterol 2.5 MG (3 mL) NEB NEB PRN (20:58)
[2023-12-24 22:34] VITALS: BMI 17.6
[2023-12-24] MEDS: Sacubitril 24MG/Valsartan 26 MG TAB PO SCH (23:05)
[2023-12-24] MEDS: Benzonatate 100 MG CAP PO SCH (23:05)
[2023-12-24] MEDS: Allopurinol 100 MG TAB PO SCH (23:06)
[2023-12-24] MEDS: Apixaban 5 MG TAB PO SCH (23:06)
[2023-12-24] MEDS: Amiodarone 200 MG TAB PO SCH (23:06)
[2023-12-24] MEDS: HYDROcodone/Acetaminophen 5/325 mg Tablet PO PRN (23:58)
[2023-12-25 00:26] LABS: Legionella Urinary Ag Negative (Negative); Strep pneumo Urine Ag NEGATIVE (NEGATIVE)
[2023-12-25 03:39] LABS: #Basophils 0.06 10x3/uL (0.0-0.2); #Eosinophils 0.26 10x3/uL (0.0-0.5); #Monocytes 1.07 10x3/uL (0.0-1.1); #Neutrophils 6.15 10x3/uL (1.5-8.4); %Basophils 0.6 % (0.0-2.0); %Eosinophils 2.5 % (0.0-6.0); %Lymphocytes 28.2 % (18.0-47.0); %Monocytes 10.2 % (0.0-10.0); %Neutrophils 58.2 % (40.0-75.0); Hematocrit 51.7 % (38.8-50.0); Mean Corpuscular Hemoglobin 22.7 pg (27.0-33.0); Mean Corpuscular Volume 78.1 fL (81.2-95.1); Mean Platelet Volume 9.7 fL (7.4-10.4); Platelet Count 251 10x3/uL (150-450); RBC Distribution Width 18.9 % (11.5-14.5); Red Blood Cell (RBC) Count 6.62 10x6/uL (4.32-5.72); White Blood Cell (WBC) Count 10.5 10x3/uL (3.5-10.5)
[2023-12-25 03:57] LABS: Troponin I 0.045 ng/mL (< 0.028)
[2023-12-25 03:58] LABS: Anion Gap 12 mmol/L (10-20); BUN (Urea Nitrogen) 23 mg/dL (8.9-20.6); Calc. Creatinine Clearance 43 mL/min (70-130); Calcium 8.2 mg/dL (7.8-10.44); Carbon Dioxide 22 mmol/L (22-29); Chloride 108 mmol/L (98-107); Estimated GFR 47; Glucose 85 mg/dL (70-105); Magnesium 1.9 mg/dL (1.6-2.6); Potassium 4.1 mmol/L (3.5-5.1); Sodium 138 mmol/L (136-145)
[2023-12-25] MEDS: Bumetanide 1 MG TAB PO SCH (09:12)
[2023-12-25] MEDS: Magnesium Oxide 250 MG TAB PO SCH (09:13)
[2023-12-25] MEDS: Digoxin 0.125 MG TAB PO SCH (09:13)
[2023-12-25] MEDS: Aspirin 81 mg Enteric Coated Tablet PO SCH (09:13)
[2023-12-25] MEDS: Pantoprazole DR 40 MG TAB PO SCH (09:13)
[2023-12-25] MEDS: Carvedilol 3.125 MG TAB PO SCH (09:13)
[2023-12-25 11:38] VITALS: BMI 17.6
[2023-12-25] MEDS: cefTRIAXone\\ROCEPHIN 2 GM in Sodium Chloride 0.9% 100 ML IVPB SCH (20:24)
[2023-12-25] MEDS: Azithromycin 500 MG in Sodium Chloride 0.9% 250 ML 250 ML IVPB SCH (20:25)
[2023-12-26 08:08] VITALS: BP 108/50; TEMP 98.5
[2023-12-26] MEDS: HYDROcodone/Acetaminophen 5/325 mg Tablet PO PRN (08:31)
== END 2023-12-26 10:15 | disposition home or self-care (01) | DRG 205 ==
LOC: CSHERS 16:21 → CSHTELE 20:53
PROVIDERS: ADMIT Student in an Organized Health Care Education/Training Program; ATTEND Internal Medicine
DX: S22.32XA Fracture of one rib, left side, initial encounter for closed fracture (principal); J18.9 Pneumonia, unspecified organism; J96.21 Acute and chronic respiratory failure with hypoxia; I50.22 Chronic systolic (congestive) heart failure; W18.30XA Fall on same level, unspecified, initial encounter; I71.40 Abdominal aortic aneurysm, without rupture, unspecified; I48.0 Paroxysmal atrial fibrillation; N18.30 Chronic kidney disease, stage 3 unspecified; M10.9 Gout, unspecified; Z88.0 Allergy status to penicillin; Z90.49 Acquired absence of other specified parts of digestive tract
CPT/HCPCS: 36415; 71045; 80048; 80053; 83690; 83735; 83880; 84484; 85025; 87040; 87449; 87899; 93005; 94760; 94762; 96365; 96367; J0456; J0696; J7050

== ENCOUNTER 2024-12-26 00:20 | Inpatient (IN) | payer MEDICAID ==
[2024-12-26 00:52] LABS: #Basophils 0.10 10x3/uL (0.0-0.2); #Eosinophils 0.33 10x3/uL (0.0-0.5); #Monocytes 1.26 10x3/uL (0.0-1.1); #Neutrophils 8.51 10x3/uL (1.5-8.4); %Basophils 0.8 % (0.0-2.0); %Eosinophils 2.6 % (0.0-6.0); %Lymphocytes 20.4 % (18.0-47.0); %Monocytes 9.8 % (0.0-10.0); %Neutrophils 66.1 % (40.0-75.0); Hematocrit 57.2 % (38.8-50.0); Hemoglobin 16.2 g/dL (13.5-17.5); Mean Corpuscular Hemoglobin 21.3 pg (27.0-33.0); Mean Corpuscular Volume 75.1 fL (81.2-95.1); Platelet Count 386 10x3/uL (150-450); Red Blood Cell (RBC) Count 7.62 10x6/uL (4.32-5.72); White Blood Cell (WBC) Count 12.86 10x3/uL (3.5-10.5)
[2024-12-26 01:02] LABS: Troponin I 0.040 ng/mL (< 0.028)
[2024-12-26 01:13] LABS: ALT (SGPT) 27 U/L (Less than 45); AST (SGOT) 46 U/L (11-34); Albumin 3.2 g/dL (3.1-4.5); Alkaline Phosphatase 106 U/L (40-110); Anion Gap 12 mmol/L (10-20); BUN (Urea Nitrogen) 39 mg/dL (8.9-20.6); Bilirubin, Total 1.1 mg/dL (0.3-1.2); Calc. Creatinine Clearance 0 mL/min (70-130); Calcium 7.9 mg/dL (7.8-10.44); Carbon Dioxide 21 mmol/L (22-29); Chloride 103 mmol/L (98-107); Globulin 4.2 g/dL (2.4-3.5); Glucose 167 mg/dL (70-105); Magnesium 2.0 mg/dL (1.6-2.6); Potassium 4.1 mmol/L (3.5-5.1); Sodium 132 mmol/L (136-145)
[2024-12-26] MEDS ORDERED: Azithromycin 500 MG VIAL ONE (01:52)
[2024-12-26] MEDS ORDERED: Magnesium 2 GM/50 ML BAG (IN WATER) ONE (01:52)
[2024-12-26] MEDS ORDERED: cefTRIAXone (ROCEPHIN) 2 GM VIAL ONE (01:52)
[2024-12-26] MEDS ORDERED: Acetaminophen 325 MG TAB PO PRN (03:27)
[2024-12-26] MEDS ORDERED: Ondansetron PF 4 MG/2 ML Vial IVP PRN (03:27)
[2024-12-26] MEDS ORDERED: Senokot S 8.6-50 MG TAB PO PRN (03:27)
[2024-12-26] MEDS ORDERED: Calcium Carbonate 500 MG ChewTAB PO PRN (03:27)
[2024-12-26] MEDS: Guaifenesin DM 100-10/5 ML UDCUP PO SCH (04:11)
[2024-12-26] MEDS: predniSONE 20 MG TAB PO SCH ×2 (04:11→09:59)
[2024-12-26 04:30] VITALS: BMI 16.4
[2024-12-26 07:34] LABS: Legionella Urinary Ag Negative (Negative); Strep pneumo Urine Ag NEGATIVE (NEGATIVE)
[2024-12-26] MEDS ORDERED: Enoxaparin 30 MG (0.3 mL) SYRINGE SC SCH (09:00)
[2024-12-26] MEDS: Aspirin 81 mg Enteric Coated Tablet PO SCH (09:59)
[2024-12-26] MEDS: Amiodarone 200 MG TAB PO SCH (09:59)
[2024-12-26] MEDS: Allopurinol 100 MG TAB PO SCH (09:59)
[2024-12-26] MEDS: Apixaban 5 MG TAB PO SCH (10:00)
[2024-12-26] MEDS: Benzonatate 100 MG CAP PO SCH (10:00)
[2024-12-26] MEDS: Pantoprazole 40 MG DR.TAB PO SCH (10:00)
[2024-12-26] MEDS: Cefdinir 300 MG CAP PO SCH (12:20)
[2024-12-26] MEDS: Guaifenesin DM 100-10/5 ML UDCUP PO PRN (12:24)
[2024-12-26] MEDS: Carvedilol 3.125 MG TAB PO SCH (14:00)
[2024-12-26] MEDS: Digoxin 0.125 MG TAB PO SCH (15:34)
[2024-12-26 16:55] LABS: Digoxin 4.15 ng/mL (0.8-2.0)
[2024-12-26] MEDS ORDERED: Sacubitril 24MG/Valsartan 26 MG TAB PO SCH (21:00)
[2024-12-27 04:49] LABS: #Basophils 0.04 10x3/uL (0.0-0.2); #Eosinophils Less than 0.03 10x3/uL (0.0-0.5); #Monocytes 0.76 10x3/uL (0.0-1.1); #Neutrophils 11.09 10x3/uL (1.5-8.4); %Basophils 0.3 % (0.0-2.0); %Eosinophils 0.0 % (0.0-6.0); %Lymphocytes 8.8 % (18.0-47.0); %Monocytes 5.8 % (0.0-10.0); %Neutrophils 84.6 % (40.0-75.0); Hematocrit 54.1 % (38.8-50.0); Hemoglobin 16.0 g/dL (13.5-17.5); Mean Corpuscular Hemoglobin 21.9 pg (27.0-33.0); Mean Corpuscular Volume 74.0 fL (81.2-95.1); Platelet Count 380 10x3/uL (150-450); Red Blood Cell (RBC) Count 7.31 10x6/uL (4.32-5.72); White Blood Cell (WBC) Count 13.12 10x3/uL (3.5-10.5)
[2024-12-27 04:55] LABS: Anion Gap 13 mmol/L (10-20); BUN (Urea Nitrogen) 42 mg/dL (8.9-20.6); Calc. Creatinine Clearance 33 mL/min (70-130); Calcium 7.9 mg/dL (7.8-10.44); Carbon Dioxide 23 mmol/L (22-29); Chloride 103 mmol/L (98-107); Glucose 133 mg/dL (70-105); Potassium 4.2 mmol/L (3.5-5.1); Sodium 135 mmol/L (136-145)
[2024-12-27 10:36] VITALS: BP 105/42; TEMP 97.1
[2024-12-27 15:29] LABS: Digoxin 3.35 ng/mL (0.8-2.0)
== END 2024-12-27 10:53 | disposition home or self-care (01) | DRG 189 ==
LOC: CSHERS 00:20 → CSHICU 03:30 → OBSVTOIN 22:45
PROVIDERS: ADMIT Student in an Organized Health Care Education/Training Program; ATTEND Family Medicine
DX: J96.21 Acute and chronic respiratory failure with hypoxia (principal); Q22.0 Pulmonary valve atresia; Q22.4 Congenital tricuspid stenosis; I5A Non-ischemic myocardial injury (non-traumatic); I42.8 Other cardiomyopathies; I50.22 Chronic systolic (congestive) heart failure; J20.9 Acute bronchitis, unspecified; D64.9 Anemia, unspecified; I48.0 Paroxysmal atrial fibrillation; M10.9 Gout, unspecified; I27.20 Pulmonary hypertension, unspecified; N18.30 Chronic kidney disease, stage 3 unspecified; Q24.9 Congenital malformation of heart, unspecified; Z88.8 Allergy status to other drugs, medicaments and biological substances; Z88.0 Allergy status to penicillin; Z90.49 Acquired absence of other specified parts of digestive tract
CPT/HCPCS: 36415; 71045; 80048; 80053; 80162; 83735; 83880; 84484; 85025; 86140; 87428; 87449; 87899; 93005; 94640; 94760; 94762; 96374; 96375; J0456; J0696; J3475; J7512